=== PATIENT | female | born 1935 | race Caucasian/White ===

== ENCOUNTER 2017-07-08 03:38 | Inpatient (IN) | payer MEDICARE ==
[~2017-07-08] VITALS: Ht 157.5 cm; Wt 64.9 kg
[~2017-07-08 03:38] MED LIST changes: -CYA1000 PO; -FERR-53 PO; -LEVO-85 PO; -OMEP-125 PO
[2017-07-08] MEDS ORDERED: fentaNYL CITR 100 MCG/2 ML AMP IVP ONE (03:45)
[2017-07-08] MEDS ORDERED: ONDANSETRON 4 MG/2 ML VIAL IVP ONE (03:45)
--- NOTE | 2017-07-08 03:45 | ER Report ---
History and Physical Time Seen By MD: 03:44 HPI/ROS CHIEF COMPLAINT: Fall, left hip swelling HISTORY OF PRESENT ILLNESS: 81-year-old female who states she tripped over her dog at 11 AM yesterday. She fell backwards onto her left buttocks. Tonight. She's not feeling well. She's complaining of significant pain in her left hip. She's been able to ambulate. She notes no chest pain, no shortness of breath , no fever, no productive cough. EMS reports a large hematoma of the left buttocks region. REVIEW OF SYSTEMS: Respiratory: No cough, no dyspnea. Cardiovascular: No chest pain, no palpitations. Gastrointestinal: No vomiting, no abdominal pain. Musculoskeletal: No back pain. Allergies: Coded Allergies: No Known Drug Allergies (Unverified , 07/08/17) Home Meds Active Scripts Amlodipine Besylate (AMLODIPINE BESYLATE) 10 Mg Tablet, 1 TAB PO QDAY, #90 TAB 1 Refill Prov:HEENA KAPADIA APRN TEST AND TURN UP TECHNICIAN-C 02/10/16 Lisinopril (LISINOPRIL) 20 Mg Tablet, 20 MG PO QDAY, #30 TAB Prov:EMANUEL AMOS MD 12/25/15 Reported Medications Omeprazole (OMEPRAZOLE) 20 Mg Capsule., PO QDAY, CAP 07/08/17 Cholecalciferol (Vitamin D3) (VITAMIN D3) 1,000 Unit Tablet, 1 TAB PO DAILY 03/04/14 Past Medical/Surgical History Past Medical History Cardiovascular: Reports hx of: hypertension other CV history (diastolic heart failure) Respiratory: Reports hx of: pneumonia (2013) Gastrointestinal: Reports hx of: GERD Genitourinary: Reports hx of: urinary tract infection (hospitalized 2015) Musculoskeletal: Reports hx of: osteoarthritis Endocrine: Reports hx of: other endocrine history (hyponatremia related to hydrochlorothiazide 2015) Reviewed Nurses Notes: Yes Old Medical Records Reviewed: Yes Hx Smoking: No Smoking Status: Never Smoker Exposure to Second Hand Smoke?: Yes ( used to smoke ) Hx Substance Use Disorder: No Hx Alcohol Use: Yes (OCCAS WINE) Constitutional Vital Sign - Last 24 Hours 07/08/17 07/08/17 07/08/17 07/08/17 03:45 03:46 03:47 03:49 Temp 97.9 Pulse 95 94 Resp 16 B/P (MAP) 145/110 (122) 156/69 (98) 156/69 Pulse Ox 91 91 O2 Delivery Room Air 07/08/17 07/08/17 07/08/17 07/08/17 04:00 04:02 04:30 04:45 Pulse 87 80 B/P (MAP) 114/86 (95) 108/56 (73) Pulse Ox 80 87 97 O2 Flow Rate 1.0 07/08/17 07/08/17 07/08/17 07/08/17 05:00 05:15 05:29 05:30 Pulse 82 85 81 82 Resp 14 B/P (MAP) 130/54 (79) 145/59 (87) Pulse Ox 94 95 93 O2 Delivery Nasal Cannula O2 Flow Rate 1 Physical Exam Vital signs stable, afebrile, pulse ox normal General Appearance: The patient is alert, has no immediate need for airway protection and no current signs of toxicity. Mild distress, alert and oriented 3, palpation of the head and neck reveal no tenderness or trauma HEENT: Pupils equal and round no injection. Oropharynx without redness or exudate, mucous. Membranes are moist Respiratory: Chest is non tender, lungs are clear to auscultation. No chest wall tenderness Cardiac: regular rate and rhythm Gastrointestinal: Abdomen is soft and non tender, no masses, bowel sounds normal. Musculoskeletal: Neck: Neck is supple and non tender. Extremities have full range of motion and are non tender. Examination of the left hip reveals a huge hematoma involving the entire left buttocks., Hip range of motion is normal. He has intact. Ankles unremarkable. The left lower cavity is neurovascularly intact. There is no pain on compression of the pelvis Skin: No rashes or lesions. DIFFERENTIAL DIAGNOSIS: After history and physical exam differential diagnosis was considered for [ ] Medical Decision Making Data Points Result Diagram: 07/09/1752507/09/17525 Laboratory Hematology Test 07/08/17 03:40 Prothrombin Time 13.8 seconds (12.0-14.4) Prothromb Time International Ratio 1.05 Activated Partial Thromboplast Time 28 seconds (23-35) Total Bilirubin 0.6 mg/dl (0.2-1.3) Aspartate Amino Transf (AST/SGOT) 27 U/L (0-35) Alanine Aminotransferase (ALT/SGPT) 29 U/L (0-56) Alkaline Phosphatase 74 U/L (0-126) Troponin I 0.015 ng/ml Total Protein 6.8 gm/dl (6.3-8.2) Albumin 3.6 g/dl (3.5-5.0) Chemistry Test 07/08/17 03:40 Prothrombin Time 13.8 seconds (12.0-14.4) Prothromb Time International Ratio 1.05 Activated Partial Thromboplast Time 28 seconds (23-35) Total Bilirubin 0.6 mg/dl (0.2-1.3) Aspartate Amino Transf (AST/SGOT) 27 U/L (0-35) Alanine Aminotransferase (ALT/SGPT) 29 U/L (0-56) Alkaline Phosphatase 74 U/L (0-126) Troponin I 0.015 ng/ml Total Protein 6.8 gm/dl (6.3-8.2) Albumin 3.6 g/dl (3.5-5.0) Coagulation Test 07/08/17 03:40 Prothrombin Time 13.8 seconds Prothromb Time International Ratio 1.05 Activated Partial Thromboplast Time 28 seconds EKG/Imaging EKG Interpretation 12 lead EK Rhythm: normal sinus rhythm 82 bpm Dinosaur: normal QRS: Left bundle branch block pattern ST segments: normal, comparison to previous EKG 12/23/15. There is some morphologic change but likely still left bundle branch block Imaging X-ray: Left hip was obtained. I viewed the images myself on the PACS system. My interpretation of the images is: No fracture no dislocation or malalignment. The radiologist interpretation had no clinically significant variation from this interpretation. ED Course/Re-evaluation Clinical Indication for ER IV: IV Access ED Course Patient was admitted to an examination room. H&P was done. The pharyngeal diagnoses was considered. On clinical examination. Patient has a large hematoma involving her entire left buttocks. Her hip moves with good range of motion. There is no pain on compression. Diagnostic x-rays of left hip are unremarkable. Other diagnostic studies show hyponatremia, hypokalemia. EKG shows left bundle branch block without significant change. Comparison to old EKGs. Her troponin is not elevated. Her H&H is drops significantly. Likely due to the large hematoma in her left hip. Patient be need to be admitted for pain management, repletion of her sodium and potassium. Decision to Disposition Date: Jul 08, 2017 Decision to Disposition Time: 04:27 Depart Departure Latest Vital Signs Vital Signs Date Time Temp Pulse Resp B/P (MAP) Pulse Ox O2 Delivery O2 Flow Rate FiO2 07/08/17 05:30 82 07/08/17 05:29 14 145/59 (87) 93 Nasal Cannula 1 07/08/17 03:49 97.9 Impression: Primary Impression: Fall in elderly patient Additional Impressions: Hyponatremia Hypokalemia Hypertension, benign Hematoma Anemia Condition: Improved Disposition: Admitted from ER Referrals: HEENA KAPADIA APRN TEST AND TURN UP TECHNICIAN-C (PCP) Problem Qualifiers Additional Impressions: Anemia Anemia type: unspecified type Qualified Codes: D64.9 - Anemia, unspecified MÓNICA GARCIA DO Jul 08, 2017 03:45
[2017-07-08] MEDS ORDERED: OMEP-125 PO (03:48)
[2017-07-08 04:00] LABS: INR 1.05
[2017-07-08 04:04] LABS: PLATELET COUNT, AUTOMATED 173 K/uL (150-450)
--- NOTE | 2017-07-08 04:24 | RADIOLOGY IMAGING REPORT ---
FACILITY: [facility] - [place] PATIENT NAME: Minna Metz : 1935 MR: [id number] V: [id number] EXAM DATE: ORDERING PHYSICIAN: MÓNICA GARCIA TECHNOLOGIST: Location: [facility] Patient: Minna Metz : 1935 Visit/Account:[id number] Date of Sevice: 07/08/2017 HIP: Indication: Injury. Technique: Two views were obtained. Comparison: None. Findings: There is no evidence of fracture, dislocation, or other acute deformity. No joint space shahana rowing, erosion, or osteophyte formation is noted. There is uniform mineralization of the skeletal st ructures. There is no evidence of soft tissue deformity or calcification. There is evidence of degenerative disc disease in the lower lumbar spine. IMPRESSION: Negative left hip. Report Dictated By: Wilmar Carrero MD at 07/08/2017 4:19 AM Report E-Signed By: Wilmar Carrero MD at 07/08/2017 4:21 AM WSN:[id number]
--- NOTE | 2017-07-08 04:34 | EKG ---
FACILITY: [facility] - [place] PATIENT NAME: RAJ FREED : [id number] MR: [id number] V: [id number] EXAM DATE: ORDERING PHYSICIAN: MÓNICA GARCIA TECHNOLOGIST: Brice Pina Reason : Blood Pressure : / mmHG Vent. Rate : 082 BPM Atrial Rate : 094 BPM P-R Int : 000 ms QRS Dur : 136 ms QT Int : 438 ms P-R-T Axes : 000 006 134 degrees QTc Int : 511 ms Normal sinus rhythm with occasional premature ventricular complexes Much baseline artifact Left bundle branch block Abnormal ECG When compared with ECG of 30-DEC-2015 23:35, Relatively unchanged but baseline artifact makes it difficult to compare Confirmed by PHILLIP SARMIENTO ([id number]) on 07/08/2017 4:56:32 AM Referred By: Confirmed By:PHILLIP SARMIENTO
[2017-07-08] MEDS ORDERED: LIDOCAINE 2% VISC SLN 15ML UDC PO ONE (05:20)
[2017-07-08] MEDS ORDERED: MAG HYD/AL HYD/SIMETH 30ML UDC PO ONE (05:20)
[2017-07-08] MEDS ORDERED: POTASSIUM CHL 10% SF LIQ 20MEQ PO ONE (05:30)
[2017-07-08] MEDS ORDERED: INFLUENZA VIRUS VAC 0.5 ML SYR IM ONLY ONE (05:30)
[2017-07-08 05:55] VITALS: BP 133/41
--- NOTE | 2017-07-08 06:18 | History & Physical ---
History of Present Illness History of Present Illness 81yo female with HTN who came to the ER because of pain in her left buttock and heart burn. For the last month, she has not felt herself. She has had a lot of heart burn and not currently taking any medications for it. Spicy foods make it worse. She has felt more chilled for the last 3 weeks. For the last week, she has has a lot of nausea and occasional vomiting. She can only drink water and eat ice chips. 2 days ago, she was getting out of her car and a puppy jumped on her. She ended up falling on her left buttock onto the ground. She was able to get up and go into her apartment, but has had a lot pain with ambulation since then. She has had trouble swallowing bulky foods for many months related to not having dentures, but now limited by nausea. She denies any hematochezia, coffee ground emesis, or hematemesis. She might have some black stools occasionally. No reported SOB, diarrhea or constipation. History Problems: (1) Unspecified diastolic heart failure Status: Acute (2) GERD (gastroesophageal reflux disease) Status: Chronic (3) Hypertension, benign Status: Chronic (4) Hyponatremia Status: Acute Home Meds Active Scripts Amlodipine Besylate (AMLODIPINE BESYLATE) 10 Mg Tablet, 1 TAB PO QDAY, #90 TAB 1 Refill Prov:HEENA KAPADIA APRN DISTILLATION OPERATOR HELPER-C 02/10/16 Lisinopril (LISINOPRIL) 20 Mg Tablet, 20 MG PO QDAY, #30 TAB Prov:EMANUEL AMOS MD 12/25/15 Reported Medications Omeprazole (OMEPRAZOLE) 20 Mg Capsule., PO QDAY, CAP 07/08/17 Cholecalciferol (Vitamin D3) (VITAMIN D3) 1,000 Unit Tablet, 1 TAB PO DAILY 03/04/14 Allergies: Coded Allergies: No Known Drug Allergies (Unverified , 07/08/17) Patient History: FH: cancer FATHER (Grew up mostly in foster care - most family history is unknown), , Age:60 years and older MOTHER (Grew up mostly in foster care - most family history is unknown), Unknown FATHER (Grew up mostly in foster care - most family history is unknown), , Age:60 years and older BROTHER OR SISTER (grew up mostly in foster cared - not much history is known) Grandmother (Lived to be 115), , Age:115 Other Social/Family Hx Lives by herself. . Hx Smoking: No Smoking Status: Never Smoker Exposure to Second Hand Smoke?: Yes ( used to smoke ) Hx Alcohol Use: Yes (OCCAS WINE) Hx Substance Use Disorder: No Social Drug Use: Never Review of Systems All Systems Reviewed/Normal: Yes, Except as Noted Exam Vital Signs Vital Signs Date Time Temp Pulse Resp B/P (MAP) Pulse Ox O2 Delivery O2 Flow Rate FiO2 07/08/17 05:30 82 07/08/17 05:29 14 145/59 (87) 93 Nasal Cannula 1 07/08/17 03:49 97.9 General Appearance: Alert, Awake, No Acute Distress (except will get "heart burn" symptoms that make her cringe briefly) Neuro: No Gross deficits (orientated to place, date and events) Eyes: PERRLA ENT: Moist Mucous Membranes, Other (Tongue with a brownish area centrally and proximally) Cardiovascular: Regular Rate and Rhythm (Intermittent split S2) Respiratory: Clear to Auscultation GI: Abd Soft and Non-Tender Musculoskeletal: Other (About 15cm diameter raised hematoma over the left ischium with some ecchymosis) Medical Decision Making Data Points Result Diagram: 07/08/17 0340 07/08/17 0340 Item Value Date Time Troponin I 0.015 ng/ml 07/08/17 0340 Total Bilirubin 0.6 mg/dl 07/08/17 0340 Aspartate Amino Transf (AST/SGOT) 27 U/L 07/08/17 0340 Alanine Aminotransferase (ALT/SGPT) 29 U/L 07/08/17 0340 Alkaline Phosphatase 74 U/L 07/08/17 0340 Hemoglobin 13.5 g/dL 05/31/17 0920 Hemoglobin 10.4 g/dL L 07/08/17 0340 Mean Corpuscular Volume 77.3 fL L 05/31/17 0920 Mean Corpuscular Volume 75.1 fL L 07/08/17 0340 Platelet Count 257 K/uL 05/31/17 0920 Platelet Count 173 K/uL 07/08/17 0340 Prothromb Time International Ratio 1.05 07/08/17 0340 Sodium Level 142 mmol/L 05/31/17 0920 Chloride Level 103 mmol/L 05/31/17 0920 Carbon Dioxide Level 28 mmol/L 05/31/17 0920 Blood Urea Nitrogen 11 mg/dl 05/31/17 0920 Creatinine 0.80 mg/dl 05/31/17 0920 EKG / Imaging Imaging Hip Xray - Negative left hip. Assessment and Plan Problems: (1) Hyponatremia Status: Acute Assessment & Plan: This is new since May. The etiology is unclear. She previously had hyponatremia related to HCTZ in December of 2015. Urine sodium and urine osmolality pending. Repeat BMP this morning, at 1300 and tomorrow morning. (2) Hypokalemia Status: Acute Assessment & Plan: Likely, related to vomiting. Repeat BMP as above and checking a Mg. Will give oral replacement now and wait to give IV until low K confirmed on a repeat. (3) Nausea Status: Acute Assessment & Plan: Reported symptoms for a week. She is also having a lot of heart burn symptoms. Will check amylase/lipase. Will try a GI cocktail. ST to evaluate for difficulty swallowing bulky foods. Prealbumin pending. (4) Hematoma Status: Acute Assessment & Plan: Over the left buttock secondary to a fall 2 day prior to admission related to a puppy jumping on her. She is anemic. Will follow the size and might need to have surgery evaluate for drainage (currently about 15 cm in diameter). Not on any anticoagulation. Platelet count and INR are wnl. Repeat CBC at 1300 and in the morning. Chronically has microcytosis with an elevated RDW, so will check iron studies, B12 and Folate. Will ask OT/PT to see for ambulation concerns and ADL's. Will ask SW to see because she lives at home alone and might need more services. (5) GERD (gastroesophageal reflux disease) Status: Chronic Assessment & Plan: She is chronically on Omeprazole, but it is unclear if she is taking it. Protonix orally with prn GI cocktail. (6) Hypertension, benign Status: Chronic Assessment & Plan: Reportedly on lisinopril and amlodipine. Per her PCP notes , there is concern about compliance. Will continue enalapril. Will hold amlodipine because of the preserved EF HF concerns. Copies to: JUAN APYNE MD; HEENA KAPADIA APRN DISTILLATION OPERATOR HELPER-C Venous Thromboembolism Antithrombotics Is Pt On Any Antithrombotics?: No Exam Sepsis Risk: No Definite Risk PHILLIP SARMIENTO MD Jul 08, 2017 06:18
[2017-07-08] MEDS ORDERED: POTASSIUM CHL PWDR 20 MEQ PKT PO ONE (06:30)
[2017-07-08] MEDS: PANTOPRAZOLE SOD 40 MG TABEC PO SCH (06:36)
[2017-07-08] MEDS ORDERED: MAGNESIUM SUL* 2 GM/50 ML IVPB 50 ML IVPB ONE (07:30)
[2017-07-08 07:35] VITALS: BP 140/53
[2017-07-08] MEDS ORDERED: NS(*) 0.9% 1000 ML BAG 1,000 ML ONE (07:43)
[2017-07-08] MEDS: KCL (*) 20 MEQ/100 ML PREMIX 100 ML IV SCH ×2 (07:46→12:18)
[2017-07-08 07:53] VITALS: BP 134/57
[2017-07-08 08:21] VITALS: Ht 157.5 cm; Wt 64.9 kg
[2017-07-08] MEDS: LISINOPRIL 20 MG TAB PO SCH (08:54)
[2017-07-08] MEDS: GI COCKTAIL 60 ML BTL PO PRN ×2 (10:33→17:04)
[2017-07-08 13:11] LABS: PLATELET COUNT, AUTOMATED 170 K/uL (150-450)
--- NOTE | 2017-07-08 15:02 | Medical Nutrition Therapy ---
Nutrition Anthropometrics Height (Inches): 62.00 Height (Calculated Centimeters: 157.464560 Weight (Pounds): 143 Weight (Calculated Kilograms): 64.977 BMI Calculated: 26.15 Davis Nutrition Score: Probably Inadequate Davis Nutrition Risk Score: 16 Dietary Referral Nutrition Risk Factors: Diff. Swallowing Nutrition Risk Comment: Pt states diffeculty swallowing chewed food. Loss of teeth recently Physical Findings Physical Appearance: Overweight BMI 25-29 Skin Appearance Skin Appearance: Edema Edema Location Modifier: Edema Location: Type of Edema: Degree of Edema: Gastrointestinal Symptoms GI Symtoms: Tube Present: Bowel Sounds: Recent Bowel Pattern: Stool Characteristics: Nutritional Diagnosis Nutritional Risk Acuity 2: V/D > 3 Days, Pr Appetite > 3d Nutritional Risk Acuity 3: GERD Past Medical History: unspecified diastolic HF, GERD, HTN, hyponatremia Nutritional Acuity: 2-Moderate Nutrition Diagnosis: Inadequate Food Intake Nutrition Etiology: Physiological Causes Nutrition Problem/Etiology/Sym: Inadequate calorie intake r/t N, V, and chewing difficulty AEB reports of poor intake over the last week. Diet Type: Diet as Tolerated AGGIE/REG Nutrition Intervention: Cont diet as ordered, Encourage intake Diet Comment To RSA: PLEASE OFFER SOFT, EASY TO CHEW FOODS PLEASE OFFER NUTR SUPPLEMENT Nutrition Monitoring & Eval RD Patient Assessment Time: [address] Assessment Type: RD Assessment Patient Nutrition Acuity: 2-Moderate Follow Up Date: Jul 10, 2017 Nutritional Comment: 07/08 Pt admitted for hyponatremia and hypokalemia. Pt reports not feeling well for the last month and had a fall 2 days ago. Within the last week pt has had nausea and occasional vomitting. She reports only drinking water and eating ice chips. Notable labs include low H/H, Na 127, K+ 3, and magnesium 1.6. Pt on AGGIE with no intakes available. Per nursing, pt states diffeculty swallowing chewed food due to loss of teeth recently. May benefit from ST eval. Will follow up with pt as well. Will monitor intake, N/V, labs, etc. 07/08 Spoke to pt in room about chewing/swallowing difficulty. Pt stated her dentures are at home so she is not able to chew tough foods here. Pt reports poor appetite due to N/V and overall not feeling well over the past week. Will offer soft foods or nutr supplement. Pt had 25% of reg portion at lunch. Will continue to monitor intakes, labs, etc. NUGENT,LOKESH Jul 08, 2017 13:59
[2017-07-08 15:35] VITALS: BP 115/55
[2017-07-08 20:45] VITALS: BP 121/51
[2017-07-08] MEDS: NS(*) 0.9% 1000 ML BAG 1,000 ML IV PRN (22:04)
[2017-07-09 00:22] VITALS: BP 123/65
[2017-07-09 05:42] LABS: PLATELET COUNT, AUTOMATED 126 K/uL (150-450)
[2017-07-09] MEDS: PANTOPRAZOLE SOD 40 MG TABEC PO SCH (06:00)
[2017-07-09] MEDS: NS(*) 0.9% 1000 ML BAG 1,000 ML IV PRN (07:14)
[2017-07-09 07:59] VITALS: BP 139/48
[2017-07-09] MEDS: FERROUS SULFATE 325 MG TAB PO SCH ×2 (09:15→16:56)
[2017-07-09] MEDS: LISINOPRIL 20 MG TAB PO SCH (09:15)
[2017-07-09] MEDS ORDERED: LEVOFLOXACIN 500 MG TAB PO SCH (10:00)
--- NOTE | 2017-07-09 11:09 | RADIOLOGY IMAGING REPORT ---
FACILITY: [facility] - [place] PATIENT NAME: Minna Metz : 1935 MR: [id number] V: [id number] EXAM DATE: ORDERING PHYSICIAN: LOU DC TECHNOLOGIST: Location: [facility] - [place] Patient: Minna Metz : 1935 Visit/Account:[id number] Date of Sevice: 07/09/2017 SOFT TISSUE NON-SPECIFIC HISTORY: left hip hematoma Additional history: Trauma COMPARISON: Radiographs left hip 07/08/2017 which were negative for fracture FINDINGS: Corrected ultrasound was performed over the left buttocks area in the area of concern. There is a com plex cystic mass in the soft tissues of the left buttocks which measures 8.8 x 6.7 x 3.4 cm. With col or Doppler interrogation there is no evidence of active bleeding in this mass is avascular. IMPRESSION: Large hypoechoic complex mass in the left buttock soft tissues. Given history this represents a large hematoma. However, recommend clinical follow-up to ensure resolution. If persistent contrasted MRI m ay be considered. No evidence of active bleeding. Report Dictated By: Reg Grubbs MD at 07/09/2017 11:02 AM Report E-Signed By: Reg Grubbs MD at 07/09/2017 11:05 AM WSN:[id number]
--- NOTE | 2017-07-09 11:48 | Hospitalist Progress Note ---
Subjective Progress Notes Subjective Mrs. Metz is an 81yo female with HTN who came to the ER because of pain in her left buttock and heart burn. For the last month, she has not felt herself. She has had a lot of heart burn and not currently taking any medications for it. Spicy foods make it worse. She has felt more chilled for the last 3 weeks. For the last week, she has has a lot of nausea and occasional vomiting. She can only drink water and eat ice chips. 2 days ago, she was getting out of her car and a puppy jumped on her. She ended up falling on her left buttock onto the ground. She was able to get up and go into her apartment, but has had a lot pain with ambulation since then. She has had trouble swallowing bulky foods for many months related to not having dentures, but now limited by nausea. She denies any hematochezia, coffee ground emesis, or hematemesis. She might have some black stools occasionally. No reported SOB, diarrhea or constipation. 07/09: She is feeling somewhat tired and otherwise feeling better than yesterday. Her hematoma has increased and her HCT has dropped from 30 to 26.9. Her U/A is also came back positive for UTI. Her elctrolytes are back to normal range except Na is 130. Her MCV is also low 75. Patient Complains of: Neurological: Weakness, No: Syncope, Confusion, Dizziness Cardiovascular: No: Chest Pain, Palpitations Respiratory: No: Cough, Congestion, Shortness of Breath, Wheezing Gastrointestinal: Bowel Movement, Other (She does not have her dentures and she has some difficuly swallowing), No Nausea, No Vomiting Genitourinary: No Dysuria, No Hematuria Musculoskeletal: No: Pain, Sprain, Strain Physical Exam Vital Signs Date Time Temp Pulse Resp B/P (MAP) Pulse Ox O2 Delivery O2 Flow Rate FiO2 07/09/17 07:59 99.7 87 16 139/48 (78) 93 Nasal Cannula 1.0 Intake and Output 07/10/17 07:00 Intake Total 240 ml Balance 240 ml Intake Oral 240 ml General Appearance: Alert, Awake, No Acute Distress, Afebrile Neuro: No Gross deficits Eyes: PERRLA ENT: Normal, Other (no dentures) Neck: No Masses Cardiovascular: Normal Rhythm & Peripheral Pulses Respiratory: No Respiratory Distress GI: Soft and Non-Tender Extremities: Soft and Non Tender Psych: Alert & Oriented X3, Appropriate Mood & Affect Result Diagram: 07/09/1752507/09/17525 Assessment and Plan Problems: (1) Urinary tract infection Status: Acute Assessment & Plan: Her U/A was positive for UTI and I will start her on Levaquin 500mg po qd for 3 days (2) Hyponatremia Status: Acute Assessment & Plan: This is new since May. The etiology is unclear. She previously had hyponatremia related to HCTZ in December of 2015. Urine sodium and urine osmolality pending. Repeat BMP this morning, at 1300 and tomorrow morning. 07/09: Her Na level has improved to 130 with the fluids. She has had N/V and her HCO3 was 36. I will check her BMP in ca (3) Hematoma Status: Acute Assessment & Plan: Over the left buttock secondary to a fall 2 day prior to admission related to a puppy jumping on her. She is anemic. Will follow the size and might need to have surgery evaluate for drainage (currently about 15 cm in diameter). Not on any anticoagulation. Platelet count and INR are wnl. Repeat CBC at 1300 and in the morning. Chronically has microcytosis with an elevated RDW, so will check iron studies, B12 and Folate. Will ask OT/PT to see for ambulation concerns and ADL's. Will ask SW to see because she lives at home alone and might need more services. 07/09: Her hematoma has increased in size and HCT has dropped to 26.9. I will get US of her L-buttock hematoma for further evaluation. I will check her stool guaic and I will start her on FeSO4 325mg po bid. (4) Hypokalemia Status: Resolved Assessment & Plan: Likely, related to vomiting. Repeat BMP as above and checking a Mg. Will give oral replacement now and wait to give IV until low K confirmed on a repeat. (5) Nausea Status: Resolved Assessment & Plan: Reported symptoms for a week. She is also having a lot of heart burn symptoms. Will check amylase/lipase. Will try a GI cocktail. ST to evaluate for difficulty swallowing bulky foods. Prealbumin pending. (6) GERD (gastroesophageal reflux disease) Status: Chronic Assessment & Plan: She is chronically on Omeprazole, but it is unclear if she is taking it. Protonix orally with prn GI cocktail. (7) Hypertension, benign Status: Chronic Assessment & Plan: Reportedly on lisinopril and amlodipine. Per her PCP notes , there is concern about compliance. Will continue enalapril. Will hold amlodipine because of the preserved EF HF concerns. Central Venous Access Medical Necessity for Access: IV Access Time Spent on Plan of Care: < 30 min Copies to: HEENA KAPADIA APRN ESCORT CAR DRIVER-C Exam Sepsis Risk: No Definite Risk LOU DC MD Jul 09, 2017 11:48
[2017-07-09 12:41] VITALS: BP 126/51
[2017-07-09] MEDS: ACETAMINOPHEN 500 MG TAB PO PRN (14:33)
[2017-07-09 14:59] VITALS: BP 116/47
[2017-07-09 19:35] VITALS: BP 129/44
[2017-07-10] VITALS (9 sets, daily range): BP systolic 122–155; BP diastolic 42–55
[2017-07-10] MEDS: ACETAMINOPHEN 500 MG TAB PO PRN ×3 (03:03→21:53)
[2017-07-10] MEDS: PANTOPRAZOLE SOD 40 MG TABEC PO SCH (05:30)
[2017-07-10 05:59] LABS: PLATELET COUNT, AUTOMATED 104 K/uL (150-450)
[2017-07-10] MEDS ORDERED: NS(*) 0.9% 500 ML BAG 500 ML ONE (08:34)
[2017-07-10] MEDS: LISINOPRIL 20 MG TAB PO SCH (08:44)
[2017-07-10] MEDS: FERROUS SULFATE 325 MG TAB PO SCH ×2 (08:44→16:48)
--- NOTE | 2017-07-10 09:21 | Hospitalist Progress Note ---
Subjective Progress Notes Subjective This patient was admitted for a hematoma suffered after a fall. She had no acute events overnight. Patient Complains of: Cardiovascular: No: Chest Pain Respiratory: No: Shortness of Breath Physical Exam Vital Signs Date Time Temp Pulse Resp B/P (MAP) Pulse Ox O2 Delivery O2 Flow Rate FiO2 07/10/17 08:59 98.5 80 16 122/47 07/10/17 07:48 91 Nasal Cannula 1.0 Intake and Output 07/11/17 07:00 # Voids 1 Cardiovascular: Regular Rate and Rhythm Respiratory: Clear to Auscultation Integumentary: Other (Ecchymosis on left lateral thigh and buttocks.) Result Diagram: 07/10/17 0520 07/10/17 0520 Item Value Date Time Urine Culture - Final Complete 07/08/17 1518 Clean Catch Midstream Ur Klebsiella Pneumoniae Assessment and Plan Problems: (1) Urinary tract infection Status: Acute Assessment & Plan: Her urinalysis showed large leukocytes, but WBC was normal and she was afebrile. She was started on a 3 day course of levofloxacin. Her culture is positive for Klebsiella. (2) Hyponatremia Status: Acute Assessment & Plan: This is new since May. The etiology is unclear. She previously had hyponatremia related to HCTZ in December of 2015. Urine sodium and urine osmolality pending. Repeat BMP this morning, at 1300 and tomorrow morning. 07/09: Her Na level has improved to 130 with the fluids. She has had N/V and her HCO3 was 36. I will check her BMP in ut Her sodium level has improved since admission. (3) Hematoma Status: Acute Assessment & Plan: Over the left buttock secondary to a fall 2 day prior to admission related to a puppy jumping on her. She is anemic. Will follow the size and might need to have surgery evaluate for drainage (currently about 15 cm in diameter). Not on any anticoagulation. Platelet count and INR are wnl. Repeat CBC at 1300 and in the morning. Chronically has microcytosis with an elevated RDW, so will check iron studies, B12 and Folate. Will ask OT/PT to see for ambulation concerns and ADL's. Will ask SW to see because she lives at home alone and might need more services. 07/09: Her hematoma has increased in size and HCT has dropped to 26.9. I will get US of her L-buttock hematoma for further evaluation. I will check her stool guaic and I will start her on FeSO4 325mg po bid. Her ultrasound showed a stable hematoma. (4) Hypokalemia Status: Resolved Assessment & Plan: Resolved with supplementation. (5) GERD (gastroesophageal reflux disease) Status: Chronic Assessment & Plan: She is chronically on Omeprazole, but it is unclear if she is taking it. Protonix orally with prn GI cocktail. (6) Hypertension, benign Status: Chronic Assessment & Plan: Reportedly on lisinopril and amlodipine. Per her PCP notes , there is concern about compliance. Will continue enalapril. Will hold amlodipine because of the preserved EF HF concerns. Her blood pressure has been stable with just the enalapril. (7) Anemia Assessment & Plan: Her Hgb has been steadily decreasing since admission. This is likely secondary to her hematoma, but her stool was also positive for occult blood. She is scheduled to receive 2 units of red cells today. We may need to consider surgical consult for colonoscopy. Central Venous Access Medical Necessity for Access: IV Access Exam Sepsis Risk: No Definite Risk DIANA DHALIWAL DO Jul 10, 2017 09:21
[2017-07-10] MEDS: LEVOFLOXACIN 500 MG TAB PO SCH (10:02)
--- NOTE | 2017-07-10 10:25 | Antimicrobial Stewardship ---
Antimicrobial Stewardship MD Service: Hospitalist Indications: UTI Antimicrobial Used Empiric treatment with Levaquin 500 mg PO x 1 day then 250 mg PO daily. This is appropriate empiric treatment for UTI. Duration of Therapy: 3 Days Start Date: Jul 09, 2017 Height (Calculated Centimeters: [phone] Weight (Calculated Kilograms): 64.977 Creatinine Cl 42.88 ml/min. Current dosing appropriate. Culture Results: HANSA Lyman Jul 10, 2017 10:25
--- NOTE | 2017-07-10 10:58 | Medical Nutrition Therapy ---
Nutrition Anthropometrics Height (Inches): 62.00 Height (Calculated Centimeters: 157.987906 Weight (Pounds): 143 Weight (Calculated Kilograms): 64.977 BMI Calculated: 26.15 Davis Nutrition Score: Adequate Davis Nutrition Risk Score: 18 Dietary Referral Nutrition Risk Factors: Diff. Swallowing Nutrition Risk Comment: Pt states diffeculty swallowing chewed food. Loss of teeth recently Nutritional Diagnosis Nutritional Risk Acuity 2: Swallowing Problem Nutritional Risk Acuity 3: GERD Past Medical History: unspecified diastolic HF, GERD, HTN, hyponatremia Nutritional Acuity: 2-Moderate Nutrition Diagnosis: Inadequate Food Intake Nutrition Etiology: Physiological Causes Nutrition Problem/Etiology/Sym: Inadequate calorie intake r/t N, V, and chewing difficulty AEB reports of poor intake over the last week. Energy Requirement: 1400 (M-SJ) Protein Requirement: 65 (1gm/kg) Fluid Requirement: 1625 (25 gm/kg) Diet Type: Diet as Tolerated AGGIE/REG Nutrition Intervention: Cont diet as ordered, Encourage intake, Between meal supplement Additional Diet Restrictions: PLEASE OFFER SOFT, EASY TO CHEW FOODS Diet Comment To RSA: PLEASE OFFER NUTR SUPPLEMENT IF INTAKE <50% Nutrition Monitoring & Eval Nutrition Goals: Eat 75-100% Meal Nutrition Follow-Up: Good Intake, Fair Intake RD Patient Assessment Time: [address] Assessment Type: RD Re-Assessment Patient Nutrition Acuity: 2-Moderate Follow Up Date: Jul 14, 2017 Nutritional Comment: 07/08 Pt admitted for hyponatremia and hypokalemia. Pt reports not feeling well for the last month and had a fall 2 days ago. Within the last week pt has had nausea and occasional vomitting. She reports only drinking water and eating ice chips. Notable labs include low H/H, Na 127, K+ 3, and magnesium 1.6. Pt on AGGIE with no intakes available. Per nursing, pt states diffeculty swallowing chewed food due to loss of teeth recently. May benefit from ST eval. Will follow up with pt as well. Will monitor intake, N/V, labs, etc. 07/08 Spoke to pt in room about chewing/swallowing difficulty. Pt stated her dentures are at home so she is not able to chew tough foods here. Pt reports poor appetite due to N/V and overall not feeling well over the past week. Will offer soft foods or nutr supplement. Pt had 25% of reg portion at lunch. Will continue to monitor intakes, labs, etc. 07/09 Pt reported only chewing problems to paid intern but reported "afaid to swallow to nursing" swallow eval pending. After diet changed to mechanical soft pt has been eating 75-100% of meals. H/H cont low. Alb 3.6, prealbuin 20, both WNR. Cont to offer nutr supplments if intake < 50%. RUBEN OZUNA Jul 10, 2017 10:58
[2017-07-10] MEDS: GI COCKTAIL 60 ML BTL PO PRN (15:59)
[2017-07-11 03:59] VITALS: BP 167/68
[2017-07-11 05:53] LABS: PLATELET COUNT, AUTOMATED 142 K/uL (150-450)
[2017-07-11 06:57] VITALS: BP 156/63
[2017-07-11] MEDS: PANTOPRAZOLE SOD 40 MG TABEC PO SCH (07:17)
[2017-07-11] MEDS: LISINOPRIL 20 MG TAB PO SCH (09:06)
[2017-07-11] MEDS: FERROUS SULFATE 325 MG TAB PO SCH (09:06)
[2017-07-11] MEDS ORDERED: CYANOCOBALAMIN 1000 MCG TAB PO SCH (09:25)
[2017-07-11] MEDS ORDERED: amLODIPine BESYL(*) 5 MG TAB PO SCH (09:25)
[2017-07-11] MEDS: LEVOFLOXACIN 500 MG TAB PO SCH (10:01)
[2017-07-11 11:08] VITALS: BP 167/69
[2017-07-11] MEDS ORDERED: LEVO-85 PO (11:58)
[2017-07-11] MEDS ORDERED: FERR-53 PO (12:00)
[2017-07-11] MEDS ORDERED: CYA1000 PO (12:00)
[2017-07-11] MEDS ORDERED: INFLUENZA VIRUS VAC 0.5 ML SYR IM ONLY ONE (13:16)
--- NOTE | 2017-07-11 13:23 | Hospitalist Depart ---
Discharge Summary Reason for Hosp/Final Diag: (1) Urinary tract infection Status: Acute Hospital Course & Plan: Mrs. Metz is an 81yo female with HTN who came to the ER because of pain in her left buttock and heart burn. For the last month, she has not felt herself. She has had a lot of heart burn and not currently taking any medications for it. Spicy foods make it worse. She has felt more chilled for the last 3 weeks. For the last week, she has has a lot of nausea and occasional vomiting. She can only drink water and eat ice chips. 2 days ago, she was getting out of her car and a puppy jumped on her. She ended up falling on her left buttock onto the ground. She was able to get up and go into her apartment, but has had a lot pain with ambulation since then. She has had trouble swallowing bulky foods for many months related to not having dentures, but now limited by nausea. She denies any hematochezia, coffee ground emesis, or hematemesis. She might have some black stools occasionally. No reported SOB , diarrhea or constipation. 07/09: She is feeling somewhat tired and otherwise feeling better than yesterday. Her hematoma has increased and her HCT has dropped from 30 to 26.9. Her U/A is also came back positive for UTI. Her electrolytes are back to normal range except Na is 130. Her MCV is also low 75. 07/11: She is doing better and without complaint today. Her UCX is positive for Klebsiella pneumonia and it is sensitive to Levaquin. She will take total of 3 days course. I started her on FeSO4 and Vit.B12 for her anemia. She also has received 2 units PRBC's and her Hb is 10.9 increased from7.8. She is being d/c' d today and she will follow her PCP for her hematoma. She also has guaic positive and she will get colonoscopy as an out patient by her PCP. (2) Hyponatremia Status: Resolved Hospital Course & Plan: This is new since May. The etiology is unclear. She previously had hyponatremia related to HCTZ in December of 2015. Urine sodium and urine osmolality pending. Repeat BMP this morning, at 1300 and tomorrow morning. 07/09: Her Na level has improved to 130 with the fluids. She has had N/V and her HCO3 was 36. I will check her BMP in ma 07/11: Her Na has improved to 135 (3) Hematoma Status: Acute Hospital Course & Plan: Over the left buttock secondary to a fall 2 day prior to admission related to a puppy jumping on her. She is anemic. Will follow the size and might need to have surgery evaluate for drainage (currently about 15 cm in diameter). Not on any anticoagulation. Platelet count and INR are wnl. Repeat CBC at 1300 and in the morning. Chronically has microcytosis with an elevated RDW, so will check iron studies, B12 and Folate. Will ask OT/PT to see for ambulation concerns and ADL's. Will ask SW to see because she lives at home alone and might need more services. 07/09: Her hematoma has increased in size and HCT has dropped to 26.9. I will get US of her L-buttock hematoma for further evaluation. I will check her stool guaic and I will start her on FeSO4 325mg po bid. 07/10 Her ultrasound showed a stable hematoma. 07/11: She will follow up with her PCP for her hematoma. I have given the instructions. (4) Hypokalemia Status: Resolved Hospital Course & Plan: Resolved with supplementation. (5) GERD (gastroesophageal reflux disease) Status: Chronic Hospital Course & Plan: She is chronically on Omeprazole, but it is unclear if she is taking it. Protonix orally with prn GI cocktail. (6) Hypertension, benign Status: Chronic Hospital Course & Plan: Reportedly on lisinopril and amlodipine. Per her PCP notes, there is concern about compliance. Will continue enalapril. Will hold amlodipine because of the preserved EF HF concerns. Her blood pressure has been stable with just the enalapril. (7) Anemia Status: Acute Hospital Course & Plan: Her Hgb has been steadily decreasing since admission. This is likely secondary to her hematoma, but her stool was also positive for occult blood. She is scheduled to receive 2 units of red cells today. We may need to consider surgical consult for colonoscopy. 07/11: She received 2 units of PRBC's and her Hb is 10.9. Her guaic was also positive and she will arrange colonoscopy by her PCP for further evaluation. I also gave her FeSO4 and Vit.B12 Departure Weight (Pounds): 143 Weight (Ounces): 4.0 Result Diagram: 07/11/1728 07/11/17527 Condition: Improved Discharge: Home, Self Care PT/OT Follow Up For: PT For Strengthening, OT Evaluation and Treat Home Health TEST LEAD APPLICATION TESTING Follow Up For: ADL Assistance Time Spent: < 30 min Discharge Instructions Home Meds Active Scripts Cyanocobalamin (Vitamin B-12) (VITAMIN B-12) 1,000 Mcg Tablet, 1000 MCG PO QDAY for 30 Days, #30 TAB Prov:LOU DC MD 07/11/17 Ferrous Sulfate (FERROUS SULFATE) 325 Mg Tablet, 325 MG PO BIDBS for 30 Days, # 60 TAB Prov:LOU DC MD 07/11/17 Levofloxacin 500 Mg Tab (LEVAQUIN 500 MG TAB) 500 Mg Tablet, 250 MG PO QDAY@10 for 1 Day, #1 TAB Prov:LOU DC MD 07/11/17 Amlodipine Besylate (AMLODIPINE BESYLATE) 10 Mg Tablet, 1 TAB PO QDAY, #90 TAB 1 Refill Prov:HEENA KAPADIA APRN-C 02/10/16 Lisinopril (LISINOPRIL) 20 Mg Tablet, 20 MG PO QDAY, #30 TAB Prov:EMANUEL AMOS MD 12/25/15 Reported Medications Omeprazole (OMEPRAZOLE) 20 Mg Capsule.dr, 20 MG PO QDAY, CAP 07/08/17 Cholecalciferol (Vitamin D3) (VITAMIN D3) 1,000 Unit Tablet, 1 TAB PO DAILY 03/04/14 Diet: Regular Activity: As Tolerated Special Instructions: diet is mecahnical soft Copies to: HEENA KAPADIA APRN-C Venous Thromboembolism Antithrombotics Is Pt On Any Antithrombotics?: No LOU DC MD Jul 11, 2017 13:23
[2017-07-12] MEDS ORDERED: LISI20TA29 PO (10:07)
[2017-07-12] MEDS ORDERED: AMLO-96 PO (10:07)
[2017-07-12] MEDS ORDERED: OMEP-125 PO (10:07)
== END 2017-07-11 13:25 | disposition home health service (06) | DRG 812 ==
LOC: ER 03:40 → MED 05:32
PROVIDERS: ADMIT Internal Medicine; ATTEND Internal Medicine
PROC: 30233N1 Transfusion of Nonautologous Red Blood Cells into Peripheral Vein, Percutaneous Approach (ICD-10-PCS; principal; 2017-07-10)
DX: D50.9 Iron deficiency anemia, unspecified (principal); N39.0 Urinary tract infection, site not specified; E87.1 Hypo-osmolality and hyponatremia; I50.32 Chronic diastolic (congestive) heart failure; I11.0 Hypertensive heart disease with heart failure; S30.0XXA Contusion of lower back and pelvis, initial encounter; E87.6 Hypokalemia; K21.9 Gastro-esophageal reflux disease without esophagitis; R19.5 Other fecal abnormalities; I44.7 Left bundle-branch block, unspecified; B96.1 Klebsiella pneumoniae [K. pneumoniae] as the cause of diseases classified elsewhere; W01.0XXA Fall on same level from slipping, tripping and stumbling without subsequent striking against object, initial encounter; Y92.810 Car as the place of occurrence of the external cause; Y99.8 Other external cause status; Z90.710 Acquired absence of both cervix and uterus; Z23 Encounter for immunization
CPT/HCPCS: 36415; 36430; 76999; 81001; 82040; 82150; 82247; 82274; 82310; 82374; 82435; 82565; 82607; 82746; 82947; 83540; 83550; 83690; 83735; 83935; 84075; 84132; 84134; 84155; 84295; 84300; 84450; 84460; 84484; 84520; 85025; 85610; 85730; 86850; 86900; 86901; 86920; 87077; 87088; 87186; 90471; 90674; 93005; 96374; 96375; 97161; 97165; 99285; J2405; J3010; J3475; J3480; J7030; J7040; P9016

== ENCOUNTER → 2017-07-08 | Outpatient (CLI) | payer MEDICARE ==
[~2017-07-08] MED LIST: AML5 PO; AMLO-96 PO; AMLO-99 PO; AMOX-559 PO; ASPI-1471 PO; BACI3.5O25 OS; CEFU250T11 PO; CHOL10005 PO; CYA1000 PO; FERR-53 PO; FLU45SYR17 IM; LEVO-85 PO; LISI-351 PO; LISI-355 PO; LISI20TA29 PO; MIRT7.5T2 PO; MULT1CAP59 PO; OMEP-125 PO; OMEP-137 PO; OMEP40CA79 PO; ONDA4TAB97 PO; OXY5 PO; PNEU0.5D3 IM; POLY17PO25 PO; TRAM-420 PO; [UNRECOGNIZED DRUG - CODE] IM
[2017-07-08 08:21] VITALS: BMI 26.1
== END ==
LOC: AMB 03:22
PROVIDERS: ATTEND Nurse Practitioner
DX: S30.0XXA Contusion of lower back and pelvis, initial encounter (principal); M25.552 Pain in left hip; W18.39XA Other fall on same level, initial encounter
CPT/HCPCS: A0425; A0427

== ENCOUNTER → 2017-08-15 | Outpatient (CLI) | payer MEDICARE ==
[2017-07-08 08:21] VITALS: BMI 26.1
[~2017-08-15] MED LIST changes: +CYA1000 PO; +FERR-53 PO; +LEVO-85 PO; +OMEP-125 PO
[2017-08-15 11:21] LABS: PLATELET COUNT, AUTOMATED 183 K/uL (150-450)
== END ==
LOC: LAB 11:03
PROVIDERS: ATTEND Nurse Practitioner Family
DX: D64.9 Anemia, unspecified (principal); E87.1 Hypo-osmolality and hyponatremia; I10 Essential (primary) hypertension
CPT/HCPCS: 36415; 82040; 82247; 82310; 82374; 82435; 82565; 82947; 84075; 84132; 84155; 84295; 84450; 84460; 84520; 85025

== ENCOUNTER → 2017-09-15 | Outpatient (CLI) | payer MEDICARE ==
[2017-07-08 08:21] VITALS: BMI 26.1
[2017-09-15 12:50] LABS: PLATELET COUNT, AUTOMATED 219 K/uL (150-450)
== END ==
LOC: LAB 12:33
PROVIDERS: ATTEND Nurse Practitioner Family
DX: D64.9 Anemia, unspecified (principal); E87.1 Hypo-osmolality and hyponatremia; R73.09 Other abnormal glucose
CPT/HCPCS: 36415; 82040; 82247; 82310; 82374; 82435; 82565; 82947; 83036; 84075; 84132; 84155; 84295; 84450; 84460; 84520; 85025

== ENCOUNTER → 2017-10-13 | Outpatient (CLI) | payer MEDICARE ==
[2017-07-08 08:21] VITALS: BMI 26.1
[2017-10-13 13:58] LABS: PLATELET COUNT, AUTOMATED 266 K/uL (150-450)
== END ==
LOC: LAB 13:45
PROVIDERS: ATTEND Nurse Practitioner Family
DX: I10 Essential (primary) hypertension (principal); R71.8 Other abnormality of red blood cells; F10.10 Alcohol abuse, uncomplicated
CPT/HCPCS: 36415; 82607; 82728; 82746; 83540; 83550; 83921; 84443; 85025; G0480; 80320; 82040; 82247; 82310; 82374; 82435; 82565; 82947; 84075; 84132; 84155; 84295; 84450; 84460; 84520

== ENCOUNTER → 2018-01-03 | Outpatient (CLI) | payer MEDICARE, MEDICAID ==
[2017-07-08 08:21] VITALS: BMI 26.1
[2018-01-03 12:16] LABS: PLATELET COUNT, AUTOMATED 211 K/uL (150-450)
== END ==
LOC: LAB 11:55
PROVIDERS: ATTEND Nurse Practitioner Family
DX: D64.9 Anemia, unspecified (principal); I10 Essential (primary) hypertension; R53.83 Other fatigue; R71.8 Other abnormality of red blood cells
CPT/HCPCS: 36415; 82040; 82247; 82310; 82374; 82435; 82565; 82607; 82728; 82746; 82947; 83540; 83550; 84075; 84132; 84155; 84295; 84443; 84450; 84460; 84520; 85025; 86140

== ENCOUNTER 2018-01-30 15:41 | Inpatient (IN) | payer MEDICARE, MEDICAID ==
[~2018-01-30] VITALS: Ht 157.5 cm; Wt 58.5 kg
--- NOTE | 2018-01-30 15:50 | ER Report ---
History and Physical Time Seen By MD: 15:50 HPI/ROS CHIEF COMPLAINT: Abdominal discomfort HISTORY OF PRESENT ILLNESS: 82-year-old female patient presents to emergency room with complaint of abdominal discomfort. Patient states that she typically drinks a beer a day. She's not had any beer for the last several days. Her neighbor states that she typically drinks a sixpack a day. She has a mother neighbor who typically goes and brings her alcohol. She states that she believes she is not had any alcohol since Tuesday. Patient states that she has been voiding normally. States she's not had anything to eat because her stomach so upset. Patient denies any fevers, chills, nausea, vomiting or diarrhea. Patient denies any urinary problems. REVIEW OF SYSTEMS: Respiratory: No cough, no dyspnea. Cardiovascular: No chest pain, no palpitations. Gastrointestinal: As noted above Musculoskeletal: No back pain. Allergies: Coded Allergies: No Known Drug Allergies (Unverified , 01/30/18) Home Meds Active Scripts Mirtazapine (MIRTAZAPINE) 7.5 Mg Tablet, 1 TAB PO QHS, #30 TAB Prov:HEENA KAPADIA APRN NETWORK DEVELOPER-C 09/15/17 Ferrous Sulfate (FERROUS SULFATE) 325 Mg Tablet, 1 TAB PO BIDBS, #60 TAB 0 Refills Prov:HEENA KAPADIA APRN NETWORK DEVELOPER-C 08/15/17 Amlodipine Besylate (AMLODIPINE BESYLATE) 5 Mg Tablet, 1 TAB PO QDAY, #90 TAB 1 Refill Prov:HEENA KAPADIA APRN NETWORK DEVELOPER-C 07/12/17 Omeprazole (OMEPRAZOLE) 20 Mg Capsule.dr, 20 MG PO QDAY, #90 CAP 3 Refills Prov:HEENA KAPADIA APRN NETWORK DEVELOPER-C 07/12/17 Lisinopril (LISINOPRIL) 20 Mg Tablet, 20 MG PO QDAY, #90 TAB 1 Refill Prov:HEENA KAPADIA APRN NETWORK DEVELOPER-C 07/12/17 Cyanocobalamin (Vitamin B-12) (VITAMIN B-12) 1,000 Mcg Tablet, 1000 MCG PO QDAY for 30 Days, #30 TAB Prov:LOU DC MD 07/11/17 Reported Medications Cholecalciferol (Vitamin D3) (VITAMIN D3) 1,000 Unit Tablet, 1 TAB PO DAILY 03/04/14 Past Medical/Surgical History Patient has a past medical history of hypertension, pneumonia, reflux, weakness in the right arm, arthritis, hemorrhage with childbearing, alcohol abuse. Patient has surgical history of tonsillectomy, hysterectomy, cholecystectomy. Patient has a family medical history of cancer, CAD, stroke. Reviewed Nurses Notes: Yes Hx Smoking: No Smoking Status: Never Smoker Exposure to Second Hand Smoke?: Yes (in the past in car with ) Hx Substance Use Disorder: No Hx Alcohol Use: Yes Constitutional Vital Sign - Last 24 Hours 01/30/18 01/30/18 01/30/18 01/30/18 15:45 15:48 15:56 16:00 Temp 99.1 Pulse 103 102 Resp 14 28 B/P (MAP) 168/83 168/63 (98) 171/63 (99) Pulse Ox 92 91 O2 Delivery Room Air Room Air 01/30/18 01/30/18 01/30/18 01/30/18 16:11 16:26 16:31 17:00 Pulse 101 100 98 Resp 16 18 24 B/P (MAP) 162/53 (89) Pulse Ox 89 90 92 O2 Delivery Room Air Room Air Room Air 01/30/18 01/30/18 01/30/18 17:01 17:30 17:31 Pulse 98 96 Resp 19 18 B/P (MAP) 169/58 (95) Pulse Ox 84 89 O2 Delivery Room Air Room Air Intake and Output 01/30/18 01/30/18 01/31/18 15:00 23:00 07:00 Intake Total 500 ml Balance 500 ml Physical Exam General Appearance: The patient is alert, has no immediate need for airway protection and no current signs of toxicity. Respiratory: Chest is non tender, lungs are clear to auscultation. Cardiac: regular rate and rhythm Gastrointestinal: Abdomen is soft and non tender, no masses, bowel sounds normal. Musculoskeletal: Neck: Neck is supple and non tender. Extremities have full range of motion and are non tender. Skin: No rashes or lesions. DIFFERENTIAL DIAGNOSIS: After history and physical exam differential diagnosis was considered for abdominal pain including but not limited to appendicitis, cholecystitis, gastritis and urinary tract infection. Medical Decision Making Data Points Result Diagram: 01/30/18 1600 01/30/18 1600 Laboratory Hematology Test 8/20/18 16:00 Red Blood Count 5.35 M/uL (4.17-5.56) Mean Corpuscular Volume 76.0 fL (80.0-96.0) Mean Corpuscular Hemoglobin 25.6 pg (26.0-33.0) Mean Corpuscular Hemoglobin Concent 33.7 g/dL (32.0-36.0) Red Cell Distribution Width 15.4 % (11.5-14.5) Mean Platelet Volume 8.4 fL (7.2-11.1) Neutrophils (%) (Auto) 72.7 % (39.4-72.5) Lymphocytes (%) (Auto) 14.6 % (17.6-49.6) Monocytes (%) (Auto) 11.3 % (4.1-12.4) Eosinophils (%) (Auto) 0.1 % (0.4-6.7) Basophils (%) (Auto) 1.3 % (0.3-1.4) Nucleated RBC Relative Count (auto) 0.0 /100WBC Neutrophils # (Auto) 4.4 K/uL (2.0-7.4) Lymphocytes # (Auto) 0.9 K/uL (1.3-3.6) Monocytes # (Auto) 0.7 K/uL (0.3-1.0) Eosinophils # (Auto) 0.0 K/uL (0.0-0.5) Basophils # (Auto) 0.1 K/uL (0.0-0.1) Nucleated RBC Absolute Count (auto) 0.00 K/uL Prothrombin Time 12.9 seconds (12.0-14.4) Prothromb Time International Ratio 0.97 Activated Partial Thromboplast Time 27 seconds (23-35) Sodium Level 125 mmol/L (137-145) Potassium Level 3.9 mmol/L (3.5-5.0) Chloride Level 88 mmol/L (98-107) Carbon Dioxide Level 25 mmol/L (22-31) Blood Urea Nitrogen 10 mg/dl (7-18) Creatinine 0.80 mg/dl (0.52-1.04) Glomerular Filtration Rate Calc > 60.0 Random Glucose 130 mg/dl (75-110) Calcium Level 9.2 mg/dl (8.4-10.2) Total Bilirubin 0.5 mg/dl (0.2-1.3) Aspartate Amino Transf (AST/SGOT) 33 U/L (0-35) Alanine Aminotransferase (ALT/SGPT) 20 U/L (0-56) Alkaline Phosphatase 73 U/L (0-126) Total Protein 7.6 g/dl (6.3-8.2) Albumin 4.6 g/dl (3.5-5.0) Amylase Level 83 U/L (0-110) Lipase 120 U/L (23-300) Serum Alcohol < 10 mg/dl Helicobacter pylori IgG Antibody Negative (NEGATIVE) Chemistry Test 01/30/18 16:00 White Blood Count 6.1 k/uL (4.5-11.0) Red Blood Count 5.35 M/uL (4.17-5.56) Hemoglobin 13.7 g/dL (12.0-16.0) Hematocrit 40.7 % (34.0-47.0) Mean Corpuscular Volume 76.0 fL (80.0-96.0) Mean Corpuscular Hemoglobin 25.6 pg (26.0-33.0) Mean Corpuscular Hemoglobin Concent 33.7 g/dL (32.0-36.0) Red Cell Distribution Width 15.4 % (11.5-14.5) Platelet Count 208 K/uL (150-450) Mean Platelet Volume 8.4 fL (7.2-11.1) Neutrophils (%) (Auto) 72.7 % (39.4-72.5) Lymphocytes (%) (Auto) 14.6 % (17.6-49.6) Monocytes (%) (Auto) 11.3 % (4.1-12.4) Eosinophils (%) (Auto) 0.1 % (0.4-6.7) Basophils (%) (Auto) 1.3 % (0.3-1.4) Nucleated RBC Relative Count (auto) 0.0 /100WBC Neutrophils # (Auto) 4.4 K/uL (2.0-7.4) Lymphocytes # (Auto) 0.9 K/uL (1.3-3.6) Monocytes # (Auto) 0.7 K/uL (0.3-1.0) Eosinophils # (Auto) 0.0 K/uL (0.0-0.5) Basophils # (Auto) 0.1 K/uL (0.0-0.1) Nucleated RBC Absolute Count (auto) 0.00 K/uL Prothrombin Time 12.9 seconds (12.0-14.4) Prothromb Time International Ratio 0.97 Activated Partial Thromboplast Time 27 seconds (23-35) Glomerular Filtration Rate Calc > 60.0 Calcium Level 9.2 mg/dl (8.4-10.2) Total Bilirubin 0.5 mg/dl (0.2-1.3) Aspartate Amino Transf (AST/SGOT) 33 U/L (0-35) Alanine Aminotransferase (ALT/SGPT) 20 U/L (0-56) Alkaline Phosphatase 73 U/L (0-126) Total Protein 7.6 g/dl (6.3-8.2) Albumin 4.6 g/dl (3.5-5.0) Amylase Level 83 U/L (0-110) Lipase 120 U/L (23-300) Serum Alcohol < 10 mg/dl Helicobacter pylori IgG Antibody Negative (NEGATIVE) Coagulation Test 01/30/18 16:00 Prothrombin Time 12.9 seconds Prothromb Time International Ratio 0.97 Activated Partial Thromboplast Time 27 seconds Toxicology Test 01/30/18 16:00 Serum Alcohol < 10 mg/dl EKG/Imaging Imaging ABDOMEN/PELVIS WITH CONTRAST HISTORY: Abdomen pain TECHNIQUE: Following administration of IV contrast contiguous axial images acquired through the abdomen/pelvis. Coronal and sagittal reformatting also performed. Dose Lowering Technique One of the following dose optimization techniques was utilized in the performance of this exam: Automated exposure control; adjustment of the mA and/ or kV according to the patient's size; or use of an iterative reconstruction technique. Specific details can be referenced in the facility's radiology CT exam operational policy. CONTRAST: 75 mL Isovue-370 COMPARISON: None. FINDINGS: Visualized lung bases: Motion artifact present. There is a 2 mm noncalcified subpleural nodule posterior aspect of the right lower lobe best seen on image 65 of series 3 Hepatobiliary: There is fatty infiltration of the liver Spleen: Negative. Adrenals: There is nodular thickening of both adrenal glands Pancreas: Negative. Kidneys ureters or bladder: 6.3 cm anterior left renal cyst Urinary bladder is mildly distended there is mild thickening of the posterior wall the bladder Genitalia: Hysterectomy GI: There is diverticulosis of the left-sided colon although no CT evidence of acute diverticulitis. The cecum is located in the right upper quadrant of the abdomen above the level of the ascending colon which may indicate a mobile cecum. This a small hiatal hernia Vessels/spaces/nodes: There are mild vascular calcifications present Bones/soft tissues: There Is a 1.7 x 0.8 cm soft tissue nodule on the patient' s skin which extends posteriorly into the subcutaneous fat in the midline of the upper abdomen. Very dense tissue is identified in the inferior portion of the right breast which appears asymmetric when compared to the left and correlation with mammography and physical exam recommended There are spondylotic changes of the lumbar spine Additional findings: None pertinent. IMPRESSION: Diverticulosis left-sided colon although no CT evidence of acute diverticulitis The cecum is located in the right upper quadrant of abdomen above the level of the ascending colon which may indicate a mobile cecum. Small hiatal hernia 2 mm noncalcified subpleural nodule right lower lobe of doubtful significance Fatty infiltration of the liver Nodular thickening of both adrenal glands The urinary bladder is mildly distended and there is mild thickening of the posterior wall. Clinical correlation needed Soft tissue nodule extending from the skin into the subcutaneous fat in the midline of the upper abdomen. This may simply represent sebaceous cyst although clinical correlation needed. Very dense tissue is identified in the inferior portion right breast which appears asymmetric when compared to the left. Correlation with mammography and physical exam recommended Report Dictated By: Hialee Vogt MD at 01/30/2018 5:06 PM Report E-Signed By: Hailee Vogt MD at 01/30/2018 5:19 PM ED Course/Re-evaluation ED Course Patient was admitted to exam room, history and physical were obtained. Differential diagnoses were considered. On examination lungs are clear, heart was regular, abdomen was soft and nontender. A CBC, CMP, CT scan of abdomen and pelvis were done. Lab results showed the patient does have a sodium of 125. Patient had no elevated white count. She is not anemic. CT scan showed no acute findings. There was some thickening of the bladder wall which could be related to possible urinary tract infection. I discussed the findings with patient. I feel that with her low-sodium patient does need to be admitted. I discussed this with her and she agreed with that. I discussed the case with Dr. Jerri Engel [facility] who agreed to accept the patient for admission. I discussed this with the patient who verbalized understanding and agreement. Decision to Disposition Date: Jan 30, 2018 Decision to Disposition Time: 17:52 Depart Departure Latest Vital Signs Vital Signs Date Time Temp Pulse Resp B/P (MAP) Pulse Ox O2 Delivery O2 Flow Rate FiO2 01/30/18 17:31 96 18 89 Room Air 01/30/18 17:30 169/58 (95) 01/30/18 15:45 99.1 Impression: Primary Impression: Hyponatremia Additional Impression: Nausea Condition: Condition Unchanged Disposition: Admitted from ER Referrals: HEENA KAPADIA APRN NETWORK DEVELOPER-C (PCP) Problem Qualifiers MARIO PEÑA Jan 30, 2018 15:50
[2018-01-30] MEDS ORDERED: NS(*) 0.9% 500 ML BAG 500 ML IV ONE (15:58)
[2018-01-30] MEDS ORDERED: ONDANSETRON 4 MG/2 ML VIAL IVP ONE (16:00)
[2018-01-30] MEDS ORDERED: IOPAMIDOL 76% 75 ML INFUS BTL 75 ML ONE (16:09)
[2018-01-30 16:17] LABS: PLATELET COUNT, AUTOMATED 208 K/uL (150-450)
[2018-01-30 16:30] LABS: INR 0.97
--- NOTE | 2018-01-30 17:23 | RADIOLOGY IMAGING REPORT ---
FACILITY: [facility] - [place], [place] PATIENT NAME: Minna Metz : 1935 MR: [id number] V: [id number] EXAM DATE: ORDERING PHYSICIAN: MARIO PEÑA TECHNOLOGIST: [place] [facility] [place] Minna Metz : 1935 Visit/Account:[id number] Date of Sevice: 01/30/2018 ABDOMEN/PELVIS WITH CONTRAST HISTORY: Abdomen pain TECHNIQUE: Following administration of IV contrast contiguous axial images acquired through the abdom en/pelvis. Coronal and sagittal reformatting also performed. Dose Lowering Technique One of the following dose optimization techniques was utilized in the performance of this exam: Autom ated exposure control; adjustment of the mA and/or kV according to the patient's size; or use of an i terative reconstruction technique. Specific details can be referenced in the facility's radiology C T exam operational policy. CONTRAST: 75 mL Isovue-370 COMPARISON: None. FINDINGS: Visualized lung bases: Motion artifact present. There is a 2 mm noncalcified subpleural nodule post erior aspect of the right lower lobe best seen on image 65 of series 3 Hepatobiliary: There is fatty infiltration of the liver Spleen: Negative. Adrenals: There is nodular thickening of both adrenal glands Pancreas: Negative. Kidneys ureters or bladder: 6.3 cm anterior left renal cyst Urinary bladder is mildly distended there is mild thickening of the posterior wall the bladder Genitalia: Hysterectomy GI: There is diverticulosis of the left-sided colon although no CT evidence of acute diverticulitis. The cecum is located in the right upper quadrant of the abdomen above the level of the ascending colo n which may indicate a mobile cecum. This a small hiatal hernia Vessels/spaces/nodes: There are mild vascular calcifications present Bones/soft tissues: There Is a 1.7 x 0.8 cm soft tissue nodule on the patient's skin which extends p osteriorly into the subcutaneous fat in the midline of the upper abdomen. Very dense tissue is ident ified in the inferior portion of the right breast which appears asymmetric when compared to the left and correlation with mammography and physical exam recommended There are spondylotic changes of the lumbar spine Additional findings: None pertinent. IMPRESSION: Diverticulosis left-sided colon although no CT evidence of acute diverticulitis The cecum is located in the right upper quadrant of abdomen above the level of the ascending colon wh ich may indicate a mobile cecum. Small hiatal hernia 2 mm noncalcified subpleural nodule right lower lobe of doubtful significance Fatty infiltration of the liver Nodular thickening of both adrenal glands The urinary bladder is mildly distended and there is mild thickening of the posterior wall. Clinical correlation needed Soft tissue nodule extending from the skin into the subcutaneous fat in the midline of the upper abdo men. This may simply represent sebaceous cyst although clinical correlation needed. Very dense tissue is identified in the inferior portion right breast which appears asymmetric when co mpared to the left. Correlation with mammography and physical exam recommended Report Dictated By: Hailee Vogt MD at 01/30/2018 5:06 PM Report E-Signed By: Hailee Vogt MD at 01/30/2018 5:19 PM JENNIFER:SELENA
[2018-01-30 18:15] VITALS: BP 161/63
[2018-01-30] MEDS ORDERED: LORazepam 2 MG/ML VIAL IVP PRN (19:40)
[2018-01-30] MEDS ORDERED: LORazepam 1 MG TAB PO PRN (19:40)
[2018-01-30] MEDS ORDERED: INFLUENZA VIRUS VAC 0.5 ML SYR IM ONLY ONE (19:40)
[2018-01-30] MEDS ORDERED: ONDANSETRON 4 MG/2 ML VIAL IVP PRN (19:40)
[2018-01-30] MEDS ORDERED: NS(*) 0.9% 1000 ML BAG 1,000 ML IV PRN (19:40)
[2018-01-30] MEDS ORDERED: CALCIUM CARBONATE 500 MG CHEW PO PRN (20:00)
[2018-01-30] MEDS ORDERED: MELATONIN 3 MG TAB PO PRN (20:00)
--- NOTE | 2018-01-30 20:20 | History & Physical ---
History of Present Illness Chief Complaint dizziness History of Present Illness 82F presented to ER with complaint of dizziness on standing. Noted to have hyponatremia of 125 on labs. Further information from patients welfare case worker and HH aid as well as neighbor reveal a woman who drinks at least 6 beers daily and is often found intoxicated. Concern also raised about memory problems and concern for her and public safety as she still drives but neighbor reports will forget which is gas/brake and found sitting in car. Neighbor reports she has adult children living in [place]. History Problems: (1) CAD (coronary artery disease) Status: Chronic (2) Hypertension, benign Status: Chronic (3) GERD (gastroesophageal reflux disease) Status: Chronic Home Meds Active Scripts Mirtazapine (MIRTAZAPINE) 7.5 Mg Tablet, 1 TAB PO QHS, #30 TAB Prov:HEENA KAPADIA APRN [employer] SUPERVISOR-C 09/15/17 Ferrous Sulfate (FERROUS SULFATE) 325 Mg Tablet, 1 TAB PO BIDBS, #60 TAB 0 Refills Prov:HEENA KAPADIA APRNP-C 08/15/17 Amlodipine Besylate (AMLODIPINE BESYLATE) 5 Mg Tablet, 1 TAB PO QDAY, #90 TAB 1 Refill Prov:HEENA KAPADIA APRNP-C 07/12/17 Omeprazole (OMEPRAZOLE) 20 Mg Capsule.dr, 20 MG PO QDAY, #90 CAP 3 Refills Prov:HEENA KAPADIA APRN [employer] SUPERVISOR-C 07/12/17 Lisinopril (LISINOPRIL) 20 Mg Tablet, 20 MG PO QDAY, #90 TAB 1 Refill Prov:HEENA KAPADIA APRNP-C 07/12/17 Cyanocobalamin (Vitamin B-12) (VITAMIN B-12) 1,000 Mcg Tablet, 1000 MCG PO QDAY for 30 Days, #30 TAB Prov:LOU DC MD 07/11/17 Discontinued Reported Medications Cholecalciferol (Vitamin D3) (VITAMIN D3) 1,000 Unit Tablet, 1 TAB PO DAILY 03/04/14 Allergies: Coded Allergies: No Known Drug Allergies (Unverified , 01/30/18) Patient History: FH: cancer FATHER (Grew up mostly in foster care - most family history is unknown), , Age:60 years and older MOTHER (Grew up mostly in foster care - most family history is unknown), Unknown FATHER (Grew up mostly in foster care - most family history is unknown), , Age:60 years and older BROTHER OR SISTER (grew up mostly in foster cared - not much history is known) Grandmother (Lived to be 115), , Age:115 Hx Smoking: No Smoking Status: Never Smoker Exposure to Second Hand Smoke?: Yes (in the past in car with ) Caffeine Intake: Coffee Caffeine/Cups Per Day: 1 cup in AM Hx Alcohol Use: Yes Alcohol Used: Beer (daily) Hx Substance Use Disorder: No Social Drug Use: Never Review of Systems All Systems Reviewed/Normal: Yes, Except as Noted Neurological: Confusion, Dizziness Respiratory: No Shortness of Breath Gastrointestinal: No Nausea, No Vomiting Genitourinary: No Dysuria Musculoskeletal: No Pain Psychiatric: Anxiety Exam Vital Signs Vital Signs Date Time Temp Pulse Resp B/P (MAP) Pulse Ox O2 Delivery O2 Flow Rate FiO2 01/30/18 18:15 98.3 91 18 161/63 (95) 97 Nasal Cannula 2.0 General Appearance: Alert, Awake, No Acute Distress Neuro: No Gross deficits Eyes: PERRLA ENT: Normal (dry mucosa) Neck: No Masses Cardiovascular: Normal Rhythm & Peripheral Pulses Respiratory: No Respiratory Distress Chest: No Tenderness GI: Abd Soft and Non-Tender Lymph: Cervical Nodes Benign Musculoskeletal: No Weakness/Pain Extremities: Soft and Non Tender, Warm, Pulses, No Edema Integumentary: Skin Intact without Lesion / Mass Psych: Other (repetitive, appears confused, oriented to person and place only) Medical Decision Making Data Points Result Diagram: 01/30/18 1600 01/30/18 1600 Assessment and Plan Problems: (1) Encephalopathy Assessment & Plan: Unknown baseline, concerns raised by HH aid, CM, and neighbor. Possible 2/2 EtOH encephalopathy vs withdrawal vs dementia vs hyponatremia. TSH and B12 pending. Begin CIWA, will need neurocognitive evaluation if other causes of encephalopathy are ruled out to evaluate for dementia. (2) Hyponatremia Status: Acute Assessment & Plan: Likely 2/2 EtOH abuse and beer potomania. IV NS, monitor Na. Recheck this charmaine and in am. Could be cause of confusion as well. (3) Alcohol abuse Assessment & Plan: Per pt one beer daily, other sources note 6 pack per day and often intoxicated. Denies withdrawal symptoms in past. Begin CIWA, PRN Ativan for withdrawal. (4) GERD (gastroesophageal reflux disease) Status: Chronic Assessment & Plan: Continue PPI (5) Anemia Status: Chronic Assessment & Plan: Microcytic, Hgb WNL on admission but suspect hemoconcentrated. Home iron and B12 replacement, continue inpatient. Likely iron deficiency based on reported poor PO intake. Central Venous Access Medical Necessity for Access: IV Access Venous Thromboembolism Antithrombotics Is Pt On Any Antithrombotics?: No (SCD only) Exam Sepsis Risk: No Definite Risk BRANDO CULVER DO Jan 30, 2018 20:20
[2018-01-30] MEDS: FOLIC ACID 1 MG TAB PO SCH (20:45)
[2018-01-30] MEDS: amLODIPine BESYL(*) 5 MG TAB PO SCH (20:45)
[2018-01-30] MEDS: THIAMINE HCL 100 MG TAB PO SCH (20:45)
[2018-01-30] MEDS: PANTOPRAZOLE SOD 40 MG TABEC PO SCH (20:45)
[2018-01-30] MEDS: SIMETHICONE 80 MG CHEW CHEW PRN (20:45)
[2018-01-30 22:26] VITALS: BP 150/87
[2018-01-31 07:52] VITALS: BP 152/59
[2018-01-31] MEDS: amLODIPine BESYL(*) 5 MG TAB PO SCH (08:37)
[2018-01-31] MEDS: PANTOPRAZOLE SOD 40 MG TABEC PO SCH (08:37)
[2018-01-31] MEDS: FOLIC ACID 1 MG TAB PO SCH (08:37)
[2018-01-31] MEDS: LISINOPRIL 20 MG TAB PO SCH (08:37)
[2018-01-31] MEDS: THIAMINE HCL 100 MG TAB PO SCH (08:37)
[2018-01-31 10:16] VITALS: Ht 157.5 cm; Wt 58.5 kg
--- NOTE | 2018-01-31 11:03 | Hospitalist Progress Note ---
Subjective Progress Notes Subjective She reports doing "better today". Appetite diminished. Physical Exam Vital Signs Date Time Temp Pulse Resp B/P (MAP) Pulse Ox O2 Delivery O2 Flow Rate FiO2 01/31/18 10:39 90 01/31/18 07:52 97.6 70 16 152/59 (90) Nasal Cannula 0.5 Intake and Output 02/01/18 07:00 Intake Total 1220 ml Balance 1220 ml Intake Oral 240 ml IV Total 980 ml # Voids 3 General Appearance: Alert, Awake Neuro: No Gross deficits Cardiovascular: Regular Rate and Rhythm Respiratory: Clear to Auscultation GI: Soft and Non-Tender Extremities: Warm, Perfused Result Diagram: 01/30/18 1600 01/31/18 0530 Assessment and Plan Problems: (1) Encephalopathy Assessment & Plan: She does appear to have some cognitive deficit. Possibly secondary to chronic alcohol use vs. withdrawal vs. dementia vs. acute ( hyponatremia). TSH and B12 pending. Continue CIWA. Will have cognitive evaluation with Speech Therapy. (2) Hyponatremia Status: Acute Assessment & Plan: Improved. Likely due to alcohol abuse and beer potomania. IV NS, monitor labs. (3) Alcohol abuse Assessment & Plan: Per patient one beer daily, but other sources note 6 pack per day and often intoxicated. Denies withdrawal symptoms in past. Continue CIWA , PRN Ativan for withdrawal. (4) GERD (gastroesophageal reflux disease) Status: Chronic Assessment & Plan: Continue PPI (5) Anemia Status: Chronic Assessment & Plan: Microcytic, Hgb/Hct in normal range on admission. Will check iron studies. Central Venous Access Medical Necessity for Access: IV Access Exam Sepsis Risk: No Definite Risk GEORGES AMOS MD Jan 31, 2018 11:03
[2018-01-31 11:18] VITALS: BP 165/65
[2018-01-31 15:05] VITALS: BP 136/67
[2018-01-31 19:11] VITALS: BP 146/60
[2018-01-31] MEDS: SIMETHICONE 80 MG CHEW CHEW PRN (20:51)
[2018-01-31] MEDS: ACETAMINOPHEN 325 MG TAB PO PRN (22:53)
[2018-02-01 03:32] VITALS: BP 125/76
[2018-02-01] MEDS: SIMETHICONE 80 MG CHEW CHEW PRN (03:49)
[2018-02-01] MEDS: ACETAMINOPHEN 325 MG TAB PO PRN (05:45)
[2018-02-01 06:07] LABS: PLATELET COUNT, AUTOMATED 192 K/uL (150-450)
[2018-02-01 07:20] VITALS: BP 131/73
--- NOTE | 2018-02-01 10:40 | Hospitalist Depart ---
Discharge Summary Reason for Hosp/Final Diag: (1) Encephalopathy Hospital Course & Plan: She does appear to have some cognitive deficit. Possi dm secondary to chronic alcohol use vs. withdrawal vs. dementia vs. acute (hyponatremia). TSH within normal range and B12 pending. Cognitive evaluation with Speech Therapy completed recommending cognitive therapy with home health. (2) Hyponatremia Status: Acute Hospital Course & Plan: Improved. Likely due to alcohol abuse and beer potomania. Improved. (3) Alcohol abuse Hospital Course & Plan: Per patient one beer daily, but other sources note 6 pack per day and often intoxicated. Denies withdrawal symptoms in past. She did not require any medication for withdraw. (4) GERD (gastroesophageal reflux disease) Status: Chronic Hospital Course & Plan: Continue PPI (5) Anemia Status: Chronic Hospital Course & Plan: Microcytic, Hgb/Hct in normal range on admission. Will check iron studies, she will follow up with PCP for further anemia recommendations. Departure Latest Vital Signs Vital Signs 02/01/18 07:20 Temp 98.3 Pulse 88 Resp 16 B/P (MAP) 131/73 (92) Pulse Ox 95 O2 Delivery Room Air O2 Flow Rate 0.5 Weight (Pounds): 129 Result Diagram: 02/01/1855 02/01/1855 Condition: Improved Discharge: Home, Home Health PT/OT Follow Up For: PT For Strengthening, OT For ADL's, PT Evaluation and Treat, ST Evaluation and Treat Discharge Instructions Home Meds Active Scripts Mirtazapine (MIRTAZAPINE) 7.5 Mg Tablet, 1 TAB PO QHS, #30 TAB Prov:HEENA KAPADIA APRN SANITATION INSPECTOR-C 09/15/17 Ferrous Sulfate (FERROUS SULFATE) 325 Mg Tablet, 1 TAB PO BIDBS, #60 TAB 0 Refills Prov:HEENA KAPADIA APRN SANITATION INSPECTOR-C 08/15/17 Amlodipine Besylate (AMLODIPINE BESYLATE) 5 Mg Tablet, 1 TAB PO QDAY, #90 TAB 1 Refill Prov:HEENA KAPADIA APRN SANITATION INSPECTOR-C 07/12/17 Omeprazole (OMEPRAZOLE) 20 Mg Capsule.dr, 20 MG PO QDAY, #90 CAP 3 Refills Prov:HEENA KAPADIA APRN SANITATION INSPECTOR-C 07/12/17 Lisinopril (LISINOPRIL) 20 Mg Tablet, 20 MG PO QDAY, #90 TAB 1 Refill Prov:HEENA KAPADIA APRN-C 07/12/17 Cyanocobalamin (Vitamin B-12) (VITAMIN B-12) 1,000 Mcg Tablet, 1000 MCG PO QDAY for 30 Days, #30 TAB Prov:LOU DC MD 07/11/17 Discontinued Reported Medications Cholecalciferol (Vitamin D3) (VITAMIN D3) 1,000 Unit Tablet, 1 TAB PO DAILY 03/04/14 Diet: Regular Activity: As Tolerated Copies to: HEENA KAPADIA APRN-C ; Venous Thromboembolism Antithrombotics Is Pt On Any Antithrombotics?: No (SCD only) [id number] Certification Face to Face Home Health Certification Institutional Provider conducted the [id number] encounter. Electronic Undersigning Physician Certifies Home Health. I certify that the patient has been under my care and that I had a [id number] encounter that meets the physician [id number] encounter requirements with this patient. This patient is home-bound due to safety issues and continues to require assistance with ADL's. I certify that based on my findings, that Nursing, Aides and the following Home Health services are medically necessary. Medical Necessity: Nursing, Rehab Date Face to Face Conducted: Feb 01, 2018 BRITTNEY COE Feb 01, 2018 10:40
[2018-02-01] MEDS: amLODIPine BESYL(*) 5 MG TAB PO SCH (10:55)
[2018-02-01] MEDS: PANTOPRAZOLE SOD 40 MG TABEC PO SCH (10:55)
[2018-02-01] MEDS: LISINOPRIL 20 MG TAB PO SCH (10:55)
[2018-02-01] MEDS: FOLIC ACID 1 MG TAB PO SCH (10:55)
[2018-02-01] MEDS: THIAMINE HCL 100 MG TAB PO SCH (10:55)
--- NOTE | 2018-02-01 12:01 | SPEECH INITIAL EVALUATION ---
INITIAL SPEECH THERAPY EVALUATION REPORT Cognitive Communication Assessment Patient Name: Minna Metz Date of Evaluation: 02/01/2018 Patient : 1935 Clinician: Laurence Mosqueda M.S., [facility]-VICE PRESIDENT QUALITY ASSURANCE Treatment Dx: Moderate to severe cognitive communicative deficit BACKGROUND The patient is an 82 year old female admitted to [facility] through the ED following complaints of dizziness while standing. The pt was noted to have hyponatremia upon admission. Concern was also raised re: memory deficits, potential alcohol abuse, and public safety d/t insistence on continuing to drive despite neighbors report that she often forgets which is gas vs break. ST was referred to analyze pts cognition and develop appropriate recommendations for safe and successful discharge to prior living environment. SPEECH: WFL. VOICE: WFL. DYSPHAGIA: WFL w/ h20 screen. No complaints. LANGUAGE/COGNITION The Eduardo Cognitive Assessment (MoCA) 7.3 alternative version was administered with the following results: -MoCA Total Score (TS): 10/30 = moderate to severe cognitive impairment -Cognitive Domains Demonstrating Deficits: attention, immediate memory, short- term memory, working memory, orientation, visuospatial skills and executive function. -Cognitive Domains Demonstrating Strength: item naming, abstraction. Pt struggled to identify errors during assessment tasks, and became easily distracted with multiple story repetitions throughout evaluation procedures. Pt frequently struggled to recall task instructions immediately following verbal presentation of information. Pt w/ poor insight re: cognitive linguistic deficits, insisting on ability to resume driving tasks, manage own medications, and handle finances independently. Pt untimely endorsed the benefits of receiving assistance with additional discussion. However, recall of this conversation is unlikely. Per RN report, the pt is scheduled to discharge home today with services and support via family, friends, and neighbor. Overall, the pt presents w/ moderate to severe, widespread cognitive communicative deficits. The pt is judged to be unsafe for discharge to prior living environment without daily supervision (03/01 would be ideal) and support for completion of all IADL s. It is also recommended that the patient receive ST services in d/c environment. Results indicate the patient may demonstrate impairments completing the following activities: Safe meal preparation Driving Attending to and removing environmental hazards/obstacles Sequencing for activities of daily living Coordinating and remembering to attend medical appointments Execution of simple or complex instructions for safety and medical purposes Independent medication management Independent nonprofit financial controller RECOMMENDATIONS ST services Daily supervision (03/01 would be optimal) Assistance with all IADL tasks Thank you for this referral. Please call [phone] Laurence Mosqueda M.S., [facility]-VICE PRESIDENT QUALITY ASSURANCE [*] VIVEK
== END 2018-02-01 13:15 | disposition home health service (06) | DRG 71 ==
LOC: ER 15:52 → MED 17:50
PROVIDERS: ADMIT Internal Medicine; ATTEND Internal Medicine
DX: G93.40 Encephalopathy, unspecified (principal); E87.1 Hypo-osmolality and hyponatremia; I10 Essential (primary) hypertension; K21.9 Gastro-esophageal reflux disease without esophagitis; I25.10 Atherosclerotic heart disease of native coronary artery without angina pectoris; D50.9 Iron deficiency anemia, unspecified; Z90.710 Acquired absence of both cervix and uterus; Z90.49 Acquired absence of other specified parts of digestive tract
CPT/HCPCS: 36415; 74177; 80320; 81001; 82040; 82150; 82247; 82310; 82374; 82435; 82565; 82607; 82728; 82947; 83540; 83550; 83690; 84075; 84132; 84155; 84295; 84443; 84450; 84460; 84520; 85025; 85610; 85730; 86677; 96361; 96374; 97161; 97165; 99283; J2405; J7030; J7040; Q9967

== ENCOUNTER → 2018-01-30 | Outpatient (CLI) | payer MEDICARE, MEDICAID ==
[2018-01-31 10:16] VITALS: BMI 23.6
== END ==
LOC: AMB 15:27
PROVIDERS: ATTEND Nurse Practitioner
DX: R10.9 Unspecified abdominal pain (principal); R11.10 Vomiting, unspecified
CPT/HCPCS: A0425; A0429

== ENCOUNTER 2018-02-14 16:33 | Inpatient (IN) | payer MEDICARE, MEDICAID ==
[~2018-02-14] VITALS: Ht 157.5 cm; Wt 56.7 kg
[~2018-02-14 16:33] MED LIST changes: +AMLO-111 PO; +AMLO-113 PO; -AMLO-96 PO; -AMLO-99 PO
--- NOTE | 2018-02-14 16:37 | ER Report ---
History and Physical Time Seen By MD: 16:37 HPI/ROS CHIEF COMPLAINT: Abdominal pain HISTORY OF PRESENT ILLNESS: This is an 82-year-old female who presents to the emergency department via EMS for abdominal pain. Patient states that this morning she drank a beer to help her go to sleep, threw up after drinking the beer, and had some coffee and has had intermittent epigastric pain since then. Patient states she does have intermittent epigastric pain normally. Denies blood in the emesis. No diarrhea. No shortness of breath or chest pain. Patient denies pain radiating to the back. No recent illnesses, no fevers or chills. No rashes or headaches. Last bowel movement yesterday. The patient was also admitted on January 30, 2018 for hyponatremia. REVIEW OF SYSTEMS: Constitutional: No fever, no chills. Eyes: No discharge. ENT: No sore throat. Cardiovascular: No chest pain, no palpitations. Respiratory: No cough, no shortness of breath. Gastrointestinal: As above. Genitourinary: No hematuria. Musculoskeletal: No back pain. Skin: No rashes. Neurological: No headache. Allergies: Coded Allergies: No Known Drug Allergies (Unverified , 02/14/18) Home Meds Active Scripts Mirtazapine (MIRTAZAPINE) 7.5 Mg Tablet, 1 TAB PO QHS, #30 TAB Prov:HEENA KAPADIA APRN-C 09/15/17 Ferrous Sulfate (FERROUS SULFATE) 325 Mg Tablet, 1 TAB PO BIDBS, #60 TAB 0 Refills Prov:HEENA KAPADIA APRN-C 08/15/17 Amlodipine Besylate (AMLODIPINE BESYLATE) 5 Mg Tablet, 1 TAB PO QDAY, #90 TAB 1 Refill Prov:HEENA KAPADIA APRN-C 07/12/17 Omeprazole (OMEPRAZOLE) 20 Mg Capsule.dr, 20 MG PO QDAY, #90 CAP 3 Refills Prov:HEENA KAPADIA APRN-C 07/12/17 Lisinopril (LISINOPRIL) 20 Mg Tablet, 20 MG PO QDAY, #90 TAB 1 Refill Prov:HEENA KAPADIA APRN-C 07/12/17 Cyanocobalamin (Vitamin B-12) (VITAMIN B-12) 1,000 Mcg Tablet, 1000 MCG PO QDAY for 30 Days, #30 TAB Prov:LOU DC MD 07/11/17 Past Medical/Surgical History The patient has a past medical and surgical history of hypertension, pneumonia, GERD, menopause, arthritis, glasses, hemorrhage secondary to childbirth, tonsillectomy. Hysterectomy. Cholecystectomy. Reviewed Nurses Notes: Yes Hx Smoking: No Smoking Status: Never Smoker Exposure to Second Hand Smoke?: Yes (in the past in car with ) Hx Substance Use Disorder: No Hx Alcohol Use: Yes Constitutional Vital Sign - Last 24 Hours 02/14/18 02/14/18 02/14/18 02/14/18 16:33 16:34 16:35 16:40 Temp 98.6 Pulse ??? 103 Resp 16 B/P (MAP) 235/199 235/199 (211) 197/126 (149) Pulse Ox 92 O2 Delivery Room Air 02/14/18 02/14/18 02/14/18 02/14/18 16:44 16:48 17:00 17:03 Pulse 99 91 Resp 19 21 B/P (MAP) 171/78 (109) 158/66 (96) Pulse Ox 92 91 02/14/18 02/14/18 02/14/18 02/14/18 17:18 17:33 17:46 17:48 Pulse 89 ??? 93 Resp 18 20 B/P (MAP) 169/75 (106) Pulse Ox 91 96 02/14/18 02/14/18 02/14/18 02/14/18 18:00 18:03 18:18 18:23 Pulse 85 89 87 Resp 20 16 33 B/P (MAP) 173/76 (108) Pulse Ox 94 90 92 02/14/18 02/14/18 02/14/18 02/14/18 18:30 18:38 18:53 18:58 Pulse 85 88 84 Resp 13 14 14 B/P (MAP) 144/63 (90) Pulse Ox 91 94 95 02/14/18 02/14/18 19:00 19:13 Pulse 81 Resp 23 B/P (MAP) 163/65 (97) Pulse Ox 91 Physical Exam General Appearance: The patient is alert, has no immediate need for airway protection and no signs of toxicity. Eyes: Pupils equal and round no pallor or injection. ENT, Mouth: Mucous membranes are moist. Respiratory: There are no retractions, lungs are clear to auscultation. Cardiovascular: Regular rate and rhythm, no murmurs, clicks or rubs. Gastrointestinal: Abdomen is soft , mild epigastric discomfort with palpation, no masses, hypoactive bowel sounds. Neurological: Alert and oriented 4. Moving all extremities. Following all commands. No focal neuro deficits. Skin: Warm and dry, no rashes. Musculoskeletal: Neck is supple non tender. Extremities are nontender, nonswollen and have full range of motion. DIFFERENTIAL DIAGNOSIS: After history and physical exam differential diagnosis was considered for abdominal pain including but not limited to appendicitis, cholecystitis, gastritis and urinary tract infection. Medical Decision Making Data Points Result Diagram: 02/14/18 1702 02/14/18 1702 Laboratory Hematology Test 02/14/18 17:02 02/14/18 17:48 Red Blood Count 4.84 M/uL (4.17-5.56) Mean Corpuscular Volume 76.8 fL (80.0-96.0) Mean Corpuscular Hemoglobin 25.5 pg (26.0-33.0) Mean Corpuscular Hemoglobin Concent 33.2 g/dL (32.0-36.0) Red Cell Distribution Width 15.2 % (11.5-14.5) Mean Platelet Volume 7.4 fL (7.2-11.1) Neutrophils (%) (Auto) 75.6 % (39.4-72.5) Lymphocytes (%) (Auto) 17.5 % (17.6-49.6) Monocytes (%) (Auto) 5.2 % (4.1-12.4) Eosinophils (%) (Auto) 0.6 % (0.4-6.7) Basophils (%) (Auto) 1.1 % (0.3-1.4) Nucleated RBC Relative Count (auto) 0.0 /100WBC Neutrophils # (Auto) 5.5 K/uL (2.0-7.4) Lymphocytes # (Auto) 1.3 K/uL (1.3-3.6) Monocytes # (Auto) 0.4 K/uL (0.3-1.0) Eosinophils # (Auto) 0.0 K/uL (0.0-0.5) Basophils # (Auto) 0.1 K/uL (0.0-0.1) Nucleated RBC Absolute Count (auto) 0.00 K/uL Sodium Level 129 mmol/L (137-145) Potassium Level 3.9 mmol/L (3.5-5.0) Chloride Level 94 mmol/L (98-107) Carbon Dioxide Level 23 mmol/L (22-31) Blood Urea Nitrogen 6 mg/dl (7-18) Creatinine 0.70 mg/dl (0.52-1.04) Glomerular Filtration Rate Calc > 60.0 Random Glucose 106 mg/dl (75-110) Calcium Level 9.0 mg/dl (8.4-10.2) Total Bilirubin 0.4 mg/dl (0.2-1.3) Aspartate Amino Transf (AST/SGOT) 23 U/L (0-35) Alanine Aminotransferase (ALT/SGPT) 16 U/L (0-56) Alkaline Phosphatase 65 U/L (0-126) Troponin I < 0.012 ng/ml Total Protein 7.3 g/dl (6.3-8.2) Albumin 4.3 g/dl (3.5-5.0) Lipase 137 U/L (23-300) Urine Color Colorless Urine Clarity Clear Urine pH 6.0 pH (4.8-9.5) Urine Specific [place] 1.001 Urine Protein Negative mg/dL (NEGATIVE) Urine Glucose (UA) Negative mg/dL (NEGATIVE) Urine Ketones Negative mg/dL (NEGATIVE) Urine Blood Negative (NEGATIVE) Urine Nitrite Negative (NEGATIVE) Urine Bilirubin Negative (NEGATIVE) Urine Urobilinogen Negative mg/dL (0.2-1.9) Urine Leukocyte Esterase Negative (NEGATIVE) Urine RBC None /HPF (0-2/HPF) Urine WBC <1 /HPF (0-5/HPF) Urine Squamous Epithelial Cells None /LPF (</=FEW) Urine Bacteria Negative /HPF (NONE-FEW) Urine Mucus None /HPF (NONE-FEW) Chemistry Test 02/14/18 17:02 02/14/18 17:48 White Blood Count 7.2 k/uL (4.5-11.0) Red Blood Count 4.84 M/uL (4.17-5.56) Hemoglobin 12.3 g/dL (12.0-16.0) Hematocrit 37.1 % (34.0-47.0) Mean Corpuscular Volume 76.8 fL (80.0-96.0) Mean Corpuscular Hemoglobin 25.5 pg (26.0-33.0) Mean Corpuscular Hemoglobin Concent 33.2 g/dL (32.0-36.0) Red Cell Distribution Width 15.2 % (11.5-14.5) Platelet Count 342 K/uL (150-450) Mean Platelet Volume 7.4 fL (7.2-11.1) Neutrophils (%) (Auto) 75.6 % (39.4-72.5) Lymphocytes (%) (Auto) 17.5 % (17.6-49.6) Monocytes (%) (Auto) 5.2 % (4.1-12.4) Eosinophils (%) (Auto) 0.6 % (0.4-6.7) Basophils (%) (Auto) 1.1 % (0.3-1.4) Nucleated RBC Relative Count (auto) 0.0 /100WBC Neutrophils # (Auto) 5.5 K/uL (2.0-7.4) Lymphocytes # (Auto) 1.3 K/uL (1.3-3.6) Monocytes # (Auto) 0.4 K/uL (0.3-1.0) Eosinophils # (Auto) 0.0 K/uL (0.0-0.5) Basophils # (Auto) 0.1 K/uL (0.0-0.1) Nucleated RBC Absolute Count (auto) 0.00 K/uL Glomerular Filtration Rate Calc > 60.0 Calcium Level 9.0 mg/dl (8.4-10.2) Total Bilirubin 0.4 mg/dl (0.2-1.3) Aspartate Amino Transf (AST/SGOT) 23 U/L (0-35) Alanine Aminotransferase (ALT/SGPT) 16 U/L (0-56) Alkaline Phosphatase 65 U/L (0-126) Troponin I < 0.012 ng/ml Total Protein 7.3 g/dl (6.3-8.2) Albumin 4.3 g/dl (3.5-5.0) Lipase 137 U/L (23-300) Urine Color Colorless Urine Clarity Clear Urine pH 6.0 pH (4.8-9.5) Urine Specific [place] 1.001 Urine Protein Negative mg/dL (NEGATIVE) Urine Glucose (UA) Negative mg/dL (NEGATIVE) Urine Ketones Negative mg/dL (NEGATIVE) Urine Blood Negative (NEGATIVE) Urine Nitrite Negative (NEGATIVE) Urine Bilirubin Negative (NEGATIVE) Urine Urobilinogen Negative mg/dL (0.2-1.9) Urine Leukocyte Esterase Negative (NEGATIVE) Urine RBC None /HPF (0-2/HPF) Urine WBC <1 /HPF (0-5/HPF) Urine Squamous Epithelial Cells None /LPF (</=FEW) Urine Bacteria Negative /HPF (NONE-FEW) Urine Mucus None /HPF (NONE-FEW) Urinalysis Test 02/14/18 17:48 Urine Color Colorless Urine Clarity Clear Urine pH 6.0 pH (4.8-9.5) Urine Specific [place] 1.001 Urine Protein Negative mg/dL (NEGATIVE) Urine Glucose (UA) Negative mg/dL (NEGATIVE) Urine Ketones Negative mg/dL (NEGATIVE) Urine Blood Negative (NEGATIVE) Urine Nitrite Negative (NEGATIVE) Urine Bilirubin Negative (NEGATIVE) Urine Urobilinogen Negative mg/dL (0.2-1.9) Urine Leukocyte Esterase Negative (NEGATIVE) Urine RBC None /HPF (0-2/HPF) Urine WBC <1 /HPF (0-5/HPF) Urine Squamous Epithelial Cells None /LPF (</=FEW) Urine Bacteria Negative /HPF (NONE-FEW) Urine Mucus None /HPF (NONE-FEW) EKG/Imaging EKG Interpretation 12 lead EKG: EKG 1655. Rhythm: Sinus rhythm, ventricular rate 92 bpm, PACs, left bundle branch block. [place]: normal QRS: normal ST segments: Left bundle branch block, underlying artifact. No significant changes from the 07/08/2017 EKG. Imaging Exam: ACUTE ABDOMEN SERIES 3 VIEW Indication: ABD PAIN, RAD Comparison: None available Findings: Single view of the chest shows normal cardiomediastinal contours. The lungs are clear. No effusion is identified. There is a nonobstructive bowel gas pattern present. There is no evidence of pneumoperitoneum. No abnormal masses or calcifications are identified. IMPRESSION: 1. Negative abdomen 2. Negative chest Report Dictated By: Arash Landin at 02/14/2018 6:32 PM Report E-Signed By: Arash Landin at 02/14/2018 6:33 PM [id number] ED Course/Re-evaluation Clinical Indication for ER IV: IV Access ED Course The patient was admitted to room via EMS. History of disc were obtained. Differential diagnoses were considered. An IV was started. Patient was given 4 mg IV Zofran. A GI cocktail. A CBC, CMP, troponin and UA were obtained. CBC unremarkable, chemistry showing sodium 129. Negative troponin. UA unremarkable. Three-view abdomen negative for any acute process. I did review the laboratory studies as well as the x-ray results with the patient. I did explain to the pat ient that I was concerned with the low sodium again, when she was discharged from the hospital sodium was 134. The patient is agreeable to an admission. I did speak with Dr. Kirkpatrick, who is accepted the patient into the hospital services for hyponatremia. 02/14/2018 7:03:26 pm I did speak with Dr. Kirkpatrick who has accepted the patient into the hospital services for hyponatremia. Decision to Disposition Date: Feb 14, 2018 Decision to Disposition Time: 18:54 Depart Departure Latest Vital Signs Vital Signs Date Time Temp Pulse Resp B/P (MAP) Pulse Ox O2 Delivery O2 Flow Rate FiO2 02/14/18 19:13 81 23 91 02/14/18 19:00 163/65 (97) 02/14/18 16:34 98.6 Room Air Impression: Primary Impression: Hyponatremia Condition: Improved Disposition: Admitted from ER Referrals: HEENA KPAADIA APRN OPTICAL ADVISOR-C (PCP) JUDY HARDEN OPTICAL ADVISOR-BC Feb 14, 2018 16:37
[2018-02-14] MEDS ORDERED: ONDANSETRON 4 MG/2 ML VIAL IVP ONE (16:50)
--- NOTE | 2018-02-14 17:03 | EKG ---
FACILITY: [facility] [place] PATIENT NAME: RAJ FREED : [id number] MR: [id number] V: [id number] EXAM DATE: ORDERING PHYSICIAN: JUDY HARDEN TECHNOLOGIST: Test Reason : epigastric pain Blood Pressure : / mmHG Vent. Rate : 092 BPM Atrial Rate : 092 BPM P-R Int : 160 ms QRS Dur : 140 ms QT Int : 434 ms P-R-T Axes : 073 -18 130 degrees QTc Int : 536 ms Sinus rhythm with occasional PVC's Left bundle branch block Abnormal ECG When compared with ECG of 08-JUL-2017 04:29, No significant change was found Confirmed by Elder Beasley ([id number]) on 02/14/2018 5:12:14 PM Referred By: Confirmed By:Elder Engel
[2018-02-14 17:09] LABS: PLATELET COUNT, AUTOMATED 342 K/uL (150-450)
[2018-02-14] MEDS ORDERED: LIDOCAINE 2% VISC SLN 15ML UDC PO ONE (18:05)
[2018-02-14] MEDS ORDERED: MAG HYD/AL HYD/SIMETH 30ML UDC PO ONE (18:05)
--- NOTE | 2018-02-14 18:37 | RADIOLOGY IMAGING REPORT ---
FACILITY: [facility] PATIENT NAME: Minna Metz : 1935 MR: [id number] V: [id number] EXAM DATE: ORDERING PHYSICIAN: JUDY HARDEN TECHNOLOGIST: Location: [facility] Patient: Minna Metz : 1935 Visit/Account:[id number] Date of Sevice: 02/14/2018 Exam: ACUTE ABDOMEN SERIES 3 VIEW Indication: ABD PAIN, RAD Comparison: None available Findings: Single view of the chest shows normal cardiomediastinal contours. The lungs are clear. No e ffusion is identified. There is a nonobstructive bowel gas pattern present. There is no evidence of pneumoperitoneum. No abn ormal masses or calcifications are identified. IMPRESSION: 1. Negative abdomen 2. Negative chest Report Dictated By: Arash Landin at 02/14/2018 6:32 PM Report E-Signed By: Arash Landin at 02/14/2018 6:33 PM [id number]
[2018-02-14 19:55] VITALS: BP 154/94
[2018-02-14] MEDS ORDERED: ONDANSETRON 4 MG/2 ML VIAL IVP PRN (20:10)
[2018-02-14] MEDS ORDERED: INFLUENZA VIRUS VAC 0.5 ML SYR IM ONLY ONE (20:10)
[2018-02-14] MEDS ORDERED: FLUSH 10 ML SYR IVP PRN (20:10)
[2018-02-14] MEDS ORDERED: LORazepam 1 MG TAB PO PRN (20:35)
--- NOTE | 2018-02-14 20:43 | History & Physical ---
History of Present Illness Chief Complaint Hyponatremia, dementia History of Present Illness 82F brought in by concerned neighbor who does not believe she can care for herself any longer. In ER noted to have hyponatremia , she was recently admitted and discharged with a presentation very similar. Per report she drinks more than she admits and has been found by HH and neighbor drunk. Little solute intake mainly beer. Cognitive evaluation last admission scored 7/10, recommendation for 24 hour care. Reversible causes of dementia were negative. Patient will likely need DPOA figured out and placement. History Unable To Obtain Past Medical: Unable to Obtain/Update Problems: (1) Hyponatremia Status: Acute (2) Anemia Status: Chronic (3) Alcohol abuse Home Meds Active Scripts Ferrous Sulfate (FERROUS SULFATE) 325 Mg Tablet, 1 TAB PO BIDBS, #60 TAB 0 Refills Prov:HEENA KAPADIA APRNP-C 08/15/17 Amlodipine Besylate (AMLODIPINE BESYLATE) 5 Mg Tablet, 1 TAB PO QDAY, #90 TAB 1 Refill Prov:HEENA KAPADIA APRN-C 07/12/17 Omeprazole (OMEPRAZOLE) 20 Mg Capsule.dr, 20 MG PO QDAY, #90 CAP 3 Refills Prov:HEENA KAPADIA APRNP-C 07/12/17 Lisinopril (LISINOPRIL) 20 Mg Tablet, 20 MG PO QDAY, #90 TAB 1 Refill Prov:HEENA KAPADIA APRNP-C 07/12/17 Cyanocobalamin (Vitamin B-12) (VITAMIN B-12) 1,000 Mcg Tablet, 1000 MCG PO QDAY for 30 Days, #30 TAB Prov:LOU DC MD 07/11/17 Allergies: Coded Allergies: No Known Drug Allergies (Unverified , 02/14/18) Patient History: FH: cancer FATHER (Grew up mostly in foster care - most family history is unknown), , Age:60 years and older MOTHER (Grew up mostly in foster care - most family history is unknown), Unknown FATHER (Grew up mostly in foster care - most family history is unknown), , Age:60 years and older BROTHER OR SISTER (grew up mostly in foster cared - not much history is known) Grandmother (Lived to be 115), , Age:115 Hx Smoking: No Smoking Status: Never Smoker Exposure to Second Hand Smoke?: Yes (in the past in car with ) Caffeine Intake: Coffee Caffeine/Cups Per Day: 1 cup in AM Hx Alcohol Use: Yes Alcohol Used: Beer Hx Substance Use Disorder: No Social Drug Use: Never Review of Systems All Systems Reviewed/Normal: Yes, Except as Noted Other poor historian, repetitive and unreliable Exam Vital Signs Vital Signs Date Time Temp Pulse Resp B/P (MAP) Pulse Ox O2 Delivery O2 Flow Rate FiO2 02/14/18 19:55 98.2 82 20 154/94 (114) 92 Room Air General Appearance: Alert, Awake, No Acute Distress Neuro: No Gross deficits Eyes: PERRLA (senile rings) ENT: Normal Neck: No Masses Cardiovascular: Normal Rhythm & Peripheral Pulses Respiratory: No Respiratory Distress GI: Abd Soft and Non-Tender Musculoskeletal: No Weakness/Pain Extremities: Soft and Non Tender, Warm, Pulses, Perfused; No Edema Integumentary: Skin Intact without Lesion / Mass Psych: Other (alert not oriented to place or time) Medical Decision Making Data Points Result Diagram: 02/14/18 1702 02/14/18 1702 Assessment and Plan Problems: (1) Dementia Assessment & Plan: Scored 7/10 on cognitive evaluation last admission. Reversible causes of dementia negative. Suspect alcohol encephalopathy vs small vessel disease vs Alzheimer Dz. Consult to Social Work to figure out who decision maker is and help arrange placement or 24 hour care. (2) Hyponatremia Status: Acute Assessment & Plan: 2/2 poor solute intake and beer potomania. Will give NaCl tablet and begin regular diet. No evidence of volume depletion. (3) Alcohol abuse Assessment & Plan: Per report drinks at least 6 pack daily, CIWA though did not require any intervention at last admission. Blood EtOH level pending. Central Venous Access Medical Necessity for Access: IV Access Venous Thromboembolism Antithrombotics Is Pt On Any Antithrombotics?: Yes Exam Sepsis Risk: No Definite Risk HARTMAN BRANDO KIM DO Feb 14, 2018 20:42
[2018-02-14] MEDS ORDERED: SODIUM CHLORIDE 1 GR TAB PO SCH (21:00)
[2018-02-14] MEDS: ACETAMINOPHEN 325 MG TAB PO PRN (21:09)
[2018-02-14] MEDS: MIRTAZAPINE 15 MG TAB PO SCH (21:09)
[2018-02-15 01:11] VITALS: BP 158/75
[2018-02-15 07:59] VITALS: BP 142/56
[2018-02-15] MEDS ORDERED: FERROUS SULFATE 325 MG TAB PO SCH (08:00)
[2018-02-15] MEDS: CYANOCOBALAMIN 1000 MCG TAB PO SCH (08:24)
[2018-02-15] MEDS: LISINOPRIL 20 MG TAB PO SCH (08:24)
[2018-02-15] MEDS: ENOXAPARIN 40 MG/0.4ML SYR SC SCH (08:24)
[2018-02-15] MEDS: PANTOPRAZOLE SOD 40 MG TABEC PO SCH (08:24)
[2018-02-15] MEDS ORDERED: SODIUM CHLORIDE 1 GR TAB PO SCH ×2 (09:00)
--- NOTE | 2018-02-15 10:43 | Hospitalist Progress Note ---
Subjective Progress Notes Subjective She is somewhat sleepy this morning, but does awaken to verbal and tactile stimuli. She tries to answer some questions, but refused to answer otehrs. Physical Exam Vital Signs Date Time Temp Pulse Resp B/P (MAP) Pulse Ox O2 Delivery O2 Flow Rate FiO2 02/15/18 07:59 98.4 75 14 142/56 (84) 96 Nasal Cannula 1.0 Intake and Output 02/15/18 06:59 # Voids 3 General Appearance: Other (somewhat somnolent, but does awaken easily) Neuro: Other (moves all four extremities) Cardiovascular: Regular Rate and Rhythm, No Edema Respiratory: Clear to Auscultation (poor effort) GI: Soft and Non-Tender (BS present) Extremities: Warm, Perfused Result Diagram: 02/14/18 1702 02/15/18 0542 Assessment and Plan Problems: (1) Dementia Status: Chronic Assessment & Plan: Scored 7/10 on cognitive evaluation last admission. Reversible causes of dementia negative. Suspect alcohol encephalopathy vs. small vessel disease vs. Alzheimer dementia. Will have Social Work help family work on placement as it now appears she will no longer be able to live semi- independently. (2) Hyponatremia Status: Chronic Assessment & Plan: Mild. probably due to poor nutrition (and possibly beer intake). No evidence of volume depletion. Will work on intake. Watch labs. (3) Alcohol abuse Status: Chronic Assessment & Plan: Per report drinks at least 6 pack daily. BAL<10 on admission. CIWA protocol, although she did not require any intervention on last admission. Monitor. Exam Sepsis Risk: No Definite Risk GEORGES AMOS MD Feb 15, 2018 10:43
[2018-02-15 10:44] VITALS: Ht 157.5 cm; Wt 56.7 kg
[2018-02-15 11:50] VITALS: BP 117/55
[2018-02-15 14:26] VITALS: BP 133/83
[2018-02-15 18:35] VITALS: BP 119/58
--- NOTE | 2018-02-15 18:37 | SLP EVALUATION SUMMARY REPORT ---
INITIAL SPEECH THERAPY EVALUATION REPORT Cognitive Communication Assessment Patient Name: Minna Metz Date of Evaluation: 02/15/2018 Patient : 1935 Clinician: Laurence Mosqueda M.S., [facility]3]-OPERATIONS TRAINER Treatment Dx: Moderate to severe cognitive communicative deficit BACKGROUND The patient is an 82 year old female admitted to [facility] through the ED. She was brought in by a concerned neighbor, and was found to be hyponatremic upon admission. The pt was also recently hospitalized at the end of January with hyponatremia. At that time, concerns were raised re: memory deficits, potential alcohol abuse, and public safety d/t insistence on continuing to drive despite neighbors report that she often forgets which is gas vs break. The pt was evaluated by ST during prior course of hospitalization with recommendation made for 24/7 supervision and assistance with all IADL activities. ST was referred to re-analyze pts cognition and develop appropriate recommendations for safe and successful discharge. SPEECH: WFL. VOICE: WFL. DYSPHAGIA: WFL. No complaints. LANGUAGE/COGNITION The [place] Cognitive Assessment (MoCA) 7.2 alternative version was administered with the following results: -MoCA Total Score (TS): 12/30 = moderate to severe cognitive impairment (prior score: 10/30) -Cognitive Domains Demonstrating Deficits: attention, immediate memory, short- term memory, working memory, orientation, visuospatial skills and executive function. -Cognitive Domains Demonstrating Strength: item naming, abstraction. Pt previously achieved a score of 10/30 on the MoCA version 7.3. Despite 2pt improvement, differences were insignificant between subtests and may be attributed to use of alternative assessment tool to avoid learner factor. Pt continues to present with moderate to severe cognitive linguistic deficits with difficulty identifying errors during assessment tasks and high level of distractibility. Linear, perseverative thinking was noted with difficulty shifting between topics of conversation. Pt w/ poor insight re: cognitive linguistic deficits, insisting on ability to resume driving tasks, manage own medications, and handle finances independently. Discussed strategies to support safety in immediate hospital environment with emphasis on utilizing call light system to obtain assistance for ambulation, toileting, transfers, etc. Immediately following evaluation encounter, the pt attempted to exit armchair independently and utilize bathroom. Overall, the pt presents w/ moderate to severe, widespread cognitive communicative deficits. The pt is judged to be unsafe for discharge to prior living environment without 24/7 supervision and support for completion of all IADL s. It is also recommended that the patient receive ST services in d/c environment. If unable to obtain 24/7 supervision, long-term care may be an appropriate option. Results indicate the patient may demonstrate impairments completing the following activities: Safe meal preparation Driving Attending to and removing environmental hazards/obstacles Sequencing for activities of daily living Coordinating and remembering to attend medical appointments Execution of simple or complex instructions for safety and medical purposes Independent medication management Independent manager financial reporting RECOMMENDATIONS 24-hour supervision in d/c environment Assistance with all IADL tasks ST 3x/wk to address memory, safety awareness, and environmental problem solving. POC 1. Pt will utilize external compensations to support recall of 5 items when provided with min cues for reference to external aides . 2. Pt will identify environmental hazards/problems and generate at least 2 appropriate solutions when provided with mod cues for improved safety awareness within immediate living environment. 3. Pt will appropriately request assistance for completion of transfers, ambulation tasks, and basic wants/needs to minimize risk for falls, injury, or medical complications during 75% of opportunities with occ reminders via trained caregivers and staff members. Thank you for this referral. Please call [phone] Laurence Mosqueda M.S., CCC-OPERATIONS TRAINER [*] VIVEK
[2018-02-15] MEDS: SIMETHICONE 80 MG CHEW CHEW PRN (20:21)
[2018-02-15] MEDS: MIRTAZAPINE 15 MG TAB PO SCH (20:33)
[2018-02-15 23:59] VITALS: BP 135/49
[2018-02-16] MEDS: ACETAMINOPHEN 325 MG TAB PO PRN ×2 (02:17→21:15)
[2018-02-16 05:43] VITALS: BP 146/92
[2018-02-16 07:00] VITALS: BP 134/55
[2018-02-16] MEDS: CYANOCOBALAMIN 1000 MCG TAB PO SCH (07:47)
[2018-02-16] MEDS: PANTOPRAZOLE SOD 40 MG TABEC PO SCH (07:47)
[2018-02-16] MEDS: LISINOPRIL 20 MG TAB PO SCH (07:47)
[2018-02-16] MEDS: ENOXAPARIN 40 MG/0.4ML SYR SC SCH (07:47)
--- NOTE | 2018-02-16 10:35 | Medical Nutrition Therapy ---
Nutrition Anthropometrics Height (Inches): 62.00 Height (Calculated Centimeters: 157.747473 Weight (Pounds): 125 Weight (Calculated Kilograms): 56.699 Davis Nutrition Score: Probably Inadequate Davis Nutrition Risk Score: 17 Dietary Referral Nutrition Risk Factors: Unplanned Loss >10lbs Nutrition Risk Comment: Pt states diffeculty swallowing chewed food. Loss of teeth recently Physical Findings Physical Appearance: 22.9 Skin Appearance Skin Appearance: Edema Edema Location Modifier: Right Edema Location: Lower Extremity Type of Edema: Degree of Edema: Gastrointestinal Symptoms GI Symtoms: Bloating, Diarrhea, Change in Bowel Pattern Tube Present: Bowel Sounds: Recent Bowel Pattern: Stool Characteristics: Nutritional Diagnosis Nutritional Risk Acuity 2: Unintended Wt Loss >5%/mo Nutritional Risk Acuity 3: Alcohol abuse Nutritional Risk Acuity 4: Good Appetite Past Medical History: Hx of hyponatremia, anemia, and alcohol abuse Nutritional Acuity: 2-Moderate Nutrition Diagnosis: Involuntary Wt. Loss Nutrition Etiology: Alcohol Addiction Nutrition Problem/Etiology/Sym: Involuntary weight loss, as related to high alcohol intake, as evidenced by excessive weight loss possibly due to receiving kcal from alcohol rather than food and 12% weight loss in 8 months. Energy Requirement: 1270 ([place], AF-1.3) Protein Requirement: 56 (1g/kg) Fluid Requirement: 1270 (1ml/kcal) Nutrition Intervention: Cont diet as ordered, Encourage intake Diet Comment To RSA: Offer nutritional supplement Nutrition Monitoring & Eval RD Patient Assessment Time: [address] Assessment Type: RD Screen Patient Nutrition Acuity: 2-Moderate Follow Up Date: Feb 21, 2018 Nutritional Comment: 01/15. Pt admitted for ab pain and hyponatremia. Pt is being treated for dementia, hyponatremia, and alcohol abuse. Pt is on AGGIE, conusmed 100% of breakfast meal. Notable labs inlucde: low sodium 133 and total protein 5.9. Pt also reports weight loss of >10lbs. Pt is 62in, 125lbs, and has a normal BMI of 22.9. Pt reported weight loss. Pt was 143lbs in June, and on 01/31 pt weighed 129lbs. That is a 12% weight loss in 8 months. Will cont to monitor. MR /. Pt cont to eat well. Sodium levels cont to be low, 136. Pt received speech evaluation and is considered to have moderate to severe cognitive communication deficit, will likely be transfered to long term care pharmacist care. Recommend pt consume 1270 kcals and 56 g protein each day. Offer nutritional supplement. MARC ESCUDERO Feb 16, 2018 09:40
--- NOTE | 2018-02-16 11:52 | Hospitalist Progress Note ---
Subjective Progress Notes Subjective She has no complaints this morning. She had no acute events overnight. Patient Complains of: Cardiovascular: No: Chest Pain Respiratory: No: Shortness of Breath Physical Exam Vital Signs Date Time Temp Pulse Resp B/P (MAP) Pulse Ox O2 Delivery O2 Flow Rate FiO2 02/16/18 08:00 95 Nasal Cannula 0.5 02/16/18 07:00 97.6 69 16 134/55 (81) Intake and Output 02/16/18 00:59 Intake Total 1400 ml Balance 1400 ml Intake Oral 1400 ml # Voids 9 # Bowel Movements 2 # [place] 1 General Appearance: Alert, Awake, No Acute Distress, Afebrile Neuro: No Gross deficits Cardiovascular: Regular Rate and Rhythm Respiratory: No Respiratory Distress, Clear to Auscultation GI: Soft and Non-Tender Extremities: Warm, Perfused; No Edema Psych: Alert & Oriented X3, Appropriate Mood & Affect Result Diagram: 02/14/18 1702 02/16/18 0523 Assessment and Plan Problems: (1) Dementia Status: Chronic Assessment & Plan: Scored 7/10 on cognitive evaluation last admission. MOCA evaluation repeated by Speech, shows moderate to severe cognitive function. The patient appears to lack mental capacity to make her own medical decisions. Reversible causes of dementia negative. Suspect alcohol encephalopathy vs. small vessel disease vs. Alzheimer dementia. Will have Social Work help family work on placement as it now appears she will no longer be able to live semi- independently. (2) Hyponatremia Status: Chronic Assessment & Plan: Mild. probably due to poor nutrition (and possibly beer intake). No evidence of volume depletion. Will work on intake. Watch labs. (3) Alcohol abuse Status: Chronic Assessment & Plan: Per report drinks at least 6 pack daily. BAL<10 on admission. CIWA protocol, although she did not require any intervention on last admission. Monitor. Exam Sepsis Risk: No Definite Risk BRITTNEY COE COMMUNICATIONS ADVISOR Feb 16, 2018 11:52
[2018-02-16 14:54] VITALS: BP 140/60
[2018-02-16 19:37] VITALS: BP 134/56
[2018-02-16] MEDS: SIMETHICONE 80 MG CHEW CHEW PRN (21:15)
[2018-02-16] MEDS: MIRTAZAPINE 15 MG TAB PO SCH (21:16)
[2018-02-16 23:09] VITALS: BP 132/51
[2018-02-17] MEDS: SIMETHICONE 80 MG CHEW CHEW PRN (01:24)
[2018-02-17 07:44] VITALS: BP 148/87
[2018-02-17] MEDS: CYANOCOBALAMIN 1000 MCG TAB PO SCH (09:14)
[2018-02-17] MEDS: PANTOPRAZOLE SOD 40 MG TABEC PO SCH (09:14)
[2018-02-17] MEDS: ENOXAPARIN 40 MG/0.4ML SYR SC SCH (09:14)
[2018-02-17] MEDS: LISINOPRIL 20 MG TAB PO SCH (09:14)
--- NOTE | 2018-02-17 11:16 | Hospitalist Progress Note ---
Subjective Progress Notes Subjective She has complaints of difficulty sleeping. She had no acute events overnight. Patient Complains of: Cardiovascular: No: Chest Pain Respiratory: No: Shortness of Breath Physical Exam Vital Signs Date Time Temp Pulse Resp B/P (MAP) Pulse Ox O2 Delivery O2 Flow Rate FiO2 02/17/18 07:50 95 Room Air 02/17/18 07:44 97.6 78 16 148/87 (107) 02/17/18 05:25 1.0 Intake and Output 02/17/18 06:59 Intake Total 2102 ml Balance 2102 ml Intake Oral 2102 ml # Voids 6 General Appearance: Alert, Awake, No Acute Distress, Afebrile Neuro: No Gross deficits Cardiovascular: Regular Rate and Rhythm Respiratory: No Respiratory Distress, Clear to Auscultation GI: Soft and Non-Tender Psych: Alert & Oriented X3, Appropriate Mood & Affect Result Diagram: 02/14/18 1702 02/16/18 0523 Assessment and Plan Problems: (1) Dementia Status: Chronic Assessment & Plan: Scored 7/10 on cognitive evaluation last admission. MOCA evaluation repeated by Speech, shows moderate to severe cognitive function. The patient appears to lack mental capacity to make her own medical decisions. Reversible causes of dementia negative. Suspect alcohol encephalopathy vs. small vessel disease vs. Alzheimer dementia. Will have Social Work help family work on placement as it now appears she will no longer be able to live semi- independently. (2) Hyponatremia Status: Chronic Assessment & Plan: Mild. probably due to poor nutrition (and possibly beer intake). No evidence of volume depletion. Will work on intake. Watch labs. (3) Alcohol abuse Status: Chronic Assessment & Plan: Per report drinks at least 6 pack daily. BAL<10 on admission. CIWA protocol, although she did not require any intervention on last admission. Monitor. (4) Insomnia Status: Acute Assessment & Plan: We will try Melatonin for sleep. Exam Sepsis Risk: No Definite Risk BRITTNEY COE Feb 17, 2018 11:16
[2018-02-17 20:54] VITALS: BP 130/53
[2018-02-17] MEDS: MIRTAZAPINE 15 MG TAB PO SCH (21:04)
[2018-02-17] MEDS: MELATONIN 3 MG TAB PO SCH (21:04)
[2018-02-18] VITALS (8 sets, daily range): BP systolic 129–191; BP diastolic 52–92
[2018-02-18] MEDS: PANTOPRAZOLE SOD 40 MG TABEC PO SCH (09:49)
[2018-02-18] MEDS: ENOXAPARIN 40 MG/0.4ML SYR SC SCH (09:49)
[2018-02-18] MEDS: CYANOCOBALAMIN 1000 MCG TAB PO SCH (09:49)
[2018-02-18] MEDS: LISINOPRIL 20 MG TAB PO SCH (09:49)
--- NOTE | 2018-02-18 12:14 | Hospitalist Progress Note ---
Subjective Progress Notes Subjective 82F admitted for hyponatremia and self care deficits. JULIAN overnight, discharge planning complicated by accusations and unclear POA status. Patient Complains of: Neurological: No: Syncope Cardiovascular: No: Chest Pain Respiratory: No: Cough Physical Exam Vital Signs Date Time Temp Pulse Resp B/P (MAP) Pulse Ox O2 Delivery O2 Flow Rate FiO2 02/18/18 11:03 97.7 76 24 141/92 (108) 94 Room Air 02/17/18 05:25 1.0 Intake and Output 02/18/18 06:59 Intake Total 1960 ml Balance 1960 ml Intake Oral 1960 ml # Voids 11 # Bowel Movements 2 General Appearance: Awake, No Acute Distress Neuro: No Gross deficits Eyes: PERRLA ENT: Normal Neck: No Masses Cardiovascular: Normal Rhythm & Peripheral Pulses Respiratory: No Respiratory Distress GI: Soft and Non-Tender Musculoskeletal: No Weakness/Pain Integumentary: Skin Intact without Lesion / Mass Result Diagram: 02/14/18 1702 02/18/18 0530 Assessment and Plan Problems: (1) Dementia Status: Chronic Assessment & Plan: Scored 7/30 on cognitive evaluation last admission. MOCA evaluation repeated by Speech, shows moderate to severe cognitive function. The patient appears to lack mental capacity to make her own medical decisions. Reversible causes of dementia negative. Suspect alcohol encephalopathy vs. small vessel disease vs. Alzheimer dementia. Will have Social Work help family work on placement as it now appears she will no longer be able to live semi- independently. (2) Hyponatremia Status: Chronic Assessment & Plan: Mild. probably due to poor nutrition (and possibly beer intake). No evidence of volume depletion. Will work on intake. Improved (3) Alcohol abuse Status: Chronic Assessment & Plan: Per report drinks at least 6 pack daily. BAL<10 on admission. CIWA protocol stopped as no interventions necessary since admission or last admission. Monitor. (4) Insomnia Status: Acute Assessment & Plan: We will try Melatonin for sleep. Exam Sepsis Risk: No Definite Risk HARTMAN BRANDO KIM DO Feb 18, 2018 12:14
[2018-02-18] MEDS: MELATONIN 3 MG TAB PO SCH (20:23)
[2018-02-18] MEDS: MIRTAZAPINE 15 MG TAB PO SCH (20:23)
[2018-02-18] MEDS: ACETAMINOPHEN 325 MG TAB PO PRN (23:29)
--- NOTE | 2018-02-19 08:47 | Hospitalist Progress Note ---
Subjective Progress Notes Subjective 82F admitted for hyponatremia. JULIAN overnight medically stable. Working with CM to create discharge plan. Patient unable to make own decisions medically and no DPOA. Physical Exam Vital Signs Date Time Temp Pulse Resp B/P (MAP) Pulse Ox O2 Delivery O2 Flow Rate FiO2 02/18/18 23:26 98.3 93 157/63 (94) 93 Room Air 02/18/18 14:18 20 02/17/18 05:25 1.0 Intake and Output 02/19/18 06:59 Intake Total 540 ml Balance 540 ml Intake Oral 540 ml # Voids 9 General Appearance: No Acute Distress, Other (Sleeping comfortably) Cardiovascular: Normal Rhythm & Peripheral Pulses Respiratory: No Respiratory Distress Extremities: Soft and Non Tender, Warm, Pulses, Perfused; No Edema Result Diagram: 02/18/18 0574 Assessment and Plan Problems: (1) Dementia Status: Chronic Assessment & Plan: Scored 7/30 on cognitive evaluation last admission. MOCA evaluation repeated by Speech, shows moderate to severe cognitive function. The patient appears to lack mental capacity to make her own medical decisions. Reversible causes of dementia negative. Suspect alcohol encephalopathy vs. small vessel disease vs. Alzheimer dementia. Will have Social Work help family work on placement as it now appears she will no longer be able to live semi- independently. (2) Hyponatremia Status: Chronic Assessment & Plan: Improved, probably due to poor nutrition (and possibly beer intake). No evidence of volume depletion. Will work on intake. (3) Alcohol abuse Status: Chronic Assessment & Plan: Per report drinks at least 6 pack daily. BAL<10 on admission. CIWA protocol stopped as no interventions necessary since admission or last admission. Monitor. (4) Insomnia Status: Acute Assessment & Plan: Melatonin for sleep. Improved Exam Sepsis Risk: No Definite Risk HARTMAN BRANDO KIM DO Feb 19, 2018 08:47
[2018-02-19 09:30] VITALS: BP 155/62
[2018-02-19] MEDS: PANTOPRAZOLE SOD 40 MG TABEC PO SCH (09:49)
[2018-02-19] MEDS: LISINOPRIL 20 MG TAB PO SCH (09:53)
[2018-02-19] MEDS: ENOXAPARIN 40 MG/0.4ML SYR SC SCH (09:53)
[2018-02-19] MEDS: CYANOCOBALAMIN 1000 MCG TAB PO SCH (09:53)
[2018-02-19 16:13] VITALS: BP 148/79
[2018-02-19] MEDS: SIMETHICONE 80 MG CHEW CHEW PRN ×2 (17:05→19:40)
[2018-02-19 19:34] VITALS: BP 154/62
[2018-02-19] MEDS: MELATONIN 3 MG TAB PO SCH (20:30)
[2018-02-19] MEDS: MIRTAZAPINE 15 MG TAB PO SCH (20:30)
[2018-02-19] MEDS: ACETAMINOPHEN 325 MG TAB PO PRN (20:32)
[2018-02-20 07:58] VITALS: BP 152/69
[2018-02-20] MEDS: CYANOCOBALAMIN 1000 MCG TAB PO SCH (08:17)
[2018-02-20] MEDS: LISINOPRIL 20 MG TAB PO SCH (08:17)
[2018-02-20] MEDS: PANTOPRAZOLE SOD 40 MG TABEC PO SCH (08:17)
[2018-02-20] MEDS: ENOXAPARIN 40 MG/0.4ML SYR SC SCH (08:17)
[2018-02-20] MEDS: amLODIPine BESYL(*) 5 MG TAB PO SCH (09:05)
--- NOTE | 2018-02-20 09:52 | Hospitalist Progress Note ---
Subjective Progress Notes Subjective She has no complaints this morning. She had no acute events overnight. Patient Complains of: Cardiovascular: No: Chest Pain Respiratory: No: Shortness of Breath Physical Exam Vital Signs Date Time Temp Pulse Resp B/P (MAP) Pulse Ox O2 Delivery O2 Flow Rate FiO2 02/20/18 07:59 95 Room Air 02/20/18 07:58 98.0 78 20 152/69 (96) 02/17/18 05:25 1.0 Intake and Output 02/20/18 06:59 Intake Total 2960 ml Balance 2960 ml Intake Oral 2960 ml # Voids 9 # Bowel Movements 2 General Appearance: Alert, Awake, No Acute Distress, Afebrile Neuro: No Gross deficits Cardiovascular: Regular Rate and Rhythm Respiratory: No Respiratory Distress, Clear to Auscultation Extremities: No Edema Psych: Alert & Oriented X3, Appropriate Mood & Affect Result Diagram: 02/18/18 0505 Assessment and Plan Problems: (1) Dementia Status: Chronic Assessment & Plan: Scored 7/30 on cognitive evaluation last admission. MOCA evaluation repeated by Speech, shows moderate to severe cognitive function. The patient appears to lack mental capacity to make her own medical decisions. Reversible causes of dementia negative. Suspect alcohol encephalopathy vs. small vessel disease vs. Alzheimer dementia. Will have Social Work help family work on placement as it now appears she will no longer be able to live semi- independently. (2) Hyponatremia Status: Chronic Assessment & Plan: Improved, probably due to poor nutrition (and possibly beer intake). No evidence of volume depletion. Will work on intake. (3) Alcohol abuse Status: Chronic Assessment & Plan: Per report drinks at least 6 pack daily. BAL<10 on admi ssion. CIWA protocol stopped as no interventions necessary since admission or last admission. Monitor. (4) Insomnia Status: Acute Assessment & Plan: Melatonin for sleep. Improved Exam Sepsis Risk: No Definite Risk BRITTNEY COE Feb 20, 2018 09:52
[2018-02-20 15:47] VITALS: BP 148/68
[2018-02-20 18:49] VITALS: BP 136/61
[2018-02-20] MEDS: SIMETHICONE 80 MG CHEW CHEW PRN (19:44)
[2018-02-20] MEDS: MIRTAZAPINE 15 MG TAB PO SCH (20:48)
[2018-02-20] MEDS: MELATONIN 3 MG TAB PO SCH (20:48)
[2018-02-20] MEDS: ACETAMINOPHEN 325 MG TAB PO PRN (23:07)
[2018-02-21 07:38] VITALS: BP 157/75
[2018-02-21] MEDS: LISINOPRIL 20 MG TAB PO SCH (08:21)
[2018-02-21] MEDS: PANTOPRAZOLE SOD 40 MG TABEC PO SCH (08:21)
[2018-02-21] MEDS: CYANOCOBALAMIN 1000 MCG TAB PO SCH (08:21)
[2018-02-21] MEDS: amLODIPine BESYL(*) 5 MG TAB PO SCH (08:21)
--- NOTE | 2018-02-21 08:39 | Hospitalist Progress Note ---
Subjective Progress Notes Subjective No concerns from the patient or staff. She slept well and is hungry for breakfast. She ambulates independently, safely. Physical Exam Vital Signs Date Time Temp Pulse Resp B/P (MAP) Pulse Ox O2 Delivery O2 Flow Rate FiO2 02/21/18 07:38 93 Room Air 02/21/18 07:38 98.5 78 16 157/75 (102) Intake and Output 02/21/18 07:00 Intake Total 1802 ml Balance 1802 ml Intake Oral 1802 ml # Voids 8 General Appearance: Alert, Awake, No Acute Distress Result Diagram: 02/18/18 0530 Assessment and Plan Problems: (1) Dementia Status: Chronic Assessment & Plan: Scored 7/30 on cognitive evaluation last admission. MOCA evaluation repeated by Speech, shows moderate to severe cognitive function. The patient appears to lack mental capacity to make her own medical decisions. Reversible causes of dementia negative. Suspect alcohol encephalopathy vs. small vessel disease vs. Alzheimer dementia. Will have Social Work help family work on placement as it now appears she will no longer be able to live semi- independently. (2) Hyponatremia Status: Chronic Assessment & Plan: Improved, probably due to poor nutrition (and possibly beer intake). No evidence of volume depletion. Will work on intake. (3) Alcohol abuse Status: Chronic Assessment & Plan: Per report drinks at least 6 pack daily. BAL<10 on admission. CIWA protocol stopped as no interventions necessary since admission or last admission. Monitor. (4) Insomnia Status: Acute Assessment & Plan: Melatonin for sleep. Improved Exam Sepsis Risk: No Definite Risk PHILLIP SARMIENTO MD Feb 21, 2018 08:39
[2018-02-21] MEDS: ACETAMINOPHEN 325 MG TAB PO PRN ×2 (11:27→19:28)
--- NOTE | 2018-02-21 11:54 | Medical Nutrition Therapy ---
Nutrition Anthropometrics Height (Inches): 62.00 Height (Calculated Centimeters: 157.465052 Weight (Pounds): 125 Weight (Calculated Kilograms): 56.699 Davis Nutrition Score: Adequate Davis Nutrition Risk Score: 19 Dietary Referral Nutrition Risk Factors: Unplanned Loss >10lbs Nutrition Risk Comment: Pt states diffeculty swallowing chewed food. Loss of teeth recently Physical Findings Physical Appearance: 22.9 Skin Appearance Skin Appearance: Edema Edema Location Modifier: Right Edema Location: Lower Extremity Type of Edema: Degree of Edema: Gastrointestinal Symptoms GI Symtoms: Bloating Tube Present: Bowel Sounds: Recent Bowel Pattern: Stool Characteristics: Nutritional Diagnosis Nutritional Risk Acuity 2: Unintended Wt Loss >5%/mo Nutritional Risk Acuity 3: Alcohol abuse Nutritional Risk Acuity 4: Good Appetite Past Medical History: Hx of hyponatremia, anemia, and alcohol abuse Nutritional Acuity: 2-Moderate Nutrition Diagnosis: Involuntary Wt. Loss Nutrition Etiology: Alcohol Addiction Nutrition Problem/Etiology/Sym: Involuntary weight loss, as related to high alcohol intake, as evidenced by excessive weight loss possibly due to receiving kcal from alcohol rather than food and 12% weight loss in 8 months. Energy Requirement: 1270 ([place], AF-1.3) Protein Requirement: 56 (1g/kg) Fluid Requirement: 1270 (1ml/kcal) Nutrition Intervention: Cont diet as ordered, Encourage intake Food Dislikes: ensure v and c Diet Comment To RSA: Offer nutritional supplement Nutrition Monitoring & Eval RD Patient Assessment Time: [address] Assessment Type: RD Re-Assessment Patient Nutrition Acuity: 2-Moderate Follow Up Date: Feb 26, 2018 Nutritional Comment: 01/15. Pt admitted for ab pain and hyponatremia. Pt is being treated for dementia, hyponatremia, and alcohol abuse. Pt is on AGGIE, conusmed 100% of breakfast meal. Notable labs inlucde: low sodium 133 and total protein 5.9. Pt also reports weight loss of >10lbs. Pt is 62in, 125lbs, and has a normal BMI of 22.9. Pt reported weight loss. Pt was 143lbs in June, and on 01/31 pt weighed 129lbs. That is a 12% weight loss in 8 months. Will cont to monitor. MR 01/16. Pt cont to eat well. Sodium levels cont to be low, 136. 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 Recommend pt consume 1270 kcals and 56 g protein each day. Offer nutritional supplement. MR 02/21. Pt cont on AGGIE, consuming on average 100% of regular sized meals. No new labs available. No new weight reported. Noted pt cont to be confused on time and forgetful at times. Will cont to monitor pt intake and weight when available. MARC ESCUDERO Feb 21, 2018 09:00
[2018-02-21 15:23] VITALS: BP 127/68
[2018-02-21] MEDS: SIMETHICONE 80 MG CHEW CHEW PRN ×2 (17:23→19:27)
[2018-02-21 19:38] VITALS: BP 122/83
[2018-02-21] MEDS: MELATONIN 3 MG TAB PO SCH (20:16)
[2018-02-21] MEDS: MIRTAZAPINE 15 MG TAB PO SCH (20:16)
[2018-02-22 07:42] VITALS: BP 148/66
--- NOTE | 2018-02-22 08:31 | Hospitalist Progress Note ---
Subjective Progress Notes Subjective She denies any new problems or complaints - "I just want to go home". Physical Exam Vital Signs Date Time Temp Pulse Resp B/P (MAP) Pulse Ox O2 Delivery O2 Flow Rate FiO2 02/22/18 07:42 98.1 76 18 148/66 (93) 93 Room Air Intake and Output 02/22/18 07:00 Intake Total 522 ml Balance 522 ml Intake Oral 522 ml # Voids 9 # Bowel Movements 1 General Appearance: Alert, Awake Cardiovascular: Regular Rate and Rhythm, No Edema Respiratory: Clear to Auscultation GI: Soft and Non-Tender Extremities: Warm, Perfused Result Diagram: 02/18/18 0530 Assessment and Plan Problems: (1) Dementia Status: Chronic Assessment & Plan: Scored 7/30 on cognitive evaluation last admission. MOCA evaluation repeated by Speech, shows moderate to severe cognitive function. The patient appears to lack mental capacity to make her own medical decisions. Reversible causes of dementia negative. Suspect alcohol encephalopathy vs. small vessel disease vs. Alzheimer dementia. Social Work helping family work on placement as it now appears she will no longer be able to live semi- independently. (2) Hyponatremia Status: Chronic Assessment & Plan: Improved, probably due to poor nutrition (and possibly beer intake). No evidence of volume depletion. Will work on intake. (3) Alcohol abuse Status: Chronic Assessment & Plan: Per report drinks at least 6 pack daily. BAL<10 on admission. CIWA protocol stopped as no interventions necessary since admission or last admission. Monitor. (4) Insomnia Status: Acute Assessment & Plan: Melatonin for sleep. Improved. Exam Sepsis Risk: No Definite Risk GEORGES AMOS MD Feb 22, 2018 08:31
[2018-02-22] MEDS: PANTOPRAZOLE SOD 40 MG TABEC PO SCH (08:34)
[2018-02-22] MEDS: LISINOPRIL 20 MG TAB PO SCH (08:34)
[2018-02-22] MEDS: CYANOCOBALAMIN 1000 MCG TAB PO SCH (08:34)
[2018-02-22] MEDS: amLODIPine BESYL(*) 5 MG TAB PO SCH (08:34)
[2018-02-22 14:26] VITALS: BP 141/78
[2018-02-22 19:02] VITALS: BP 152/71
[2018-02-22] MEDS: MIRTAZAPINE 15 MG TAB PO SCH (21:34)
[2018-02-22] MEDS: MELATONIN 3 MG TAB PO SCH (21:34)
[2018-02-22] MEDS: ACETAMINOPHEN 325 MG TAB PO PRN (21:34)
[2018-02-22 22:52] VITALS: BP 153/70
[2018-02-22] MEDS: SIMETHICONE 80 MG CHEW CHEW PRN (22:53)
[2018-02-23 05:56] LABS: PLATELET COUNT, AUTOMATED 232 K/uL (150-450)
[2018-02-23 08:23] VITALS: BP 156/73
[2018-02-23] MEDS: LISINOPRIL 20 MG TAB PO SCH (08:52)
[2018-02-23] MEDS: PANTOPRAZOLE SOD 40 MG TABEC PO SCH (08:52)
[2018-02-23] MEDS: amLODIPine BESYL(*) 5 MG TAB PO SCH (08:52)
[2018-02-23] MEDS: CYANOCOBALAMIN 1000 MCG TAB PO SCH (08:52)
[2018-02-23] MEDS ORDERED: MELA3TAB31 PO (10:33)
[2018-02-23] MEDS ORDERED: ACET-2007 PO (10:33)
--- NOTE | 2018-02-23 10:36 | Hospitalist Depart ---
Discharge Summary Reason for Hosp/Final Diag: (1) Dementia Status: Chronic Hospital Course & Plan: Scored 7/30 on cognitive evaluation last admission. MOCA evaluation repeated by Speech, shows moderate to severe cognitive function. The patient appears to lack mental capacity to make her own medical decisions. Reversible causes of dementia negative. Suspect alcohol encephalopathy vs. small vessel disease vs. Alzheimer dementia. Discharge to [facility]. (2) Hyponatremia Status: Chronic Hospital Course & Plan: Due to poor nutrition and beer drinking. No evidence of volume depletion. Resolved with nutrition and avoid EtOH. (3) Alcohol abuse Status: Chronic Hospital Course & Plan: Per report drinks at least 6 pack daily. BAL<10 on admission. No withdrawal symptoms. (4) Insomnia Status: Acute Hospital Course & Plan: Melatonin for sleep. Improved. Departure Weight (Pounds): 125 Result Diagram: 02/23/1852002/23/18520 Condition: Improved Discharge: [facility] Discharge Instructions Home Meds Active Scripts Melatonin (MELATONIN) 3 Mg Tablet, 3 MG PO QHS for 30 Days, TAB Prov:DEVAN KIMBRANDO DO 02/23/18 Acetaminophen (MAPAP) 325 Mg Tablet, 650 MG PO Q6H PRN for PAIN OR FEVER 100 OR GREATER for 30 Days, TAB Prov:DEVAN KIMBRANDO DO 02/23/18 Mirtazapine (MIRTAZAPINE) 7.5 Mg Tablet, 1 TAB PO QHS, #30 TAB Prov:HEENA KAPADIA APRN STUD DRIVER-C 09/15/17 Ferrous Sulfate (FERROUS SULFATE) 325 Mg Tablet, 1 TAB PO BIDBS, #60 TAB 0 Refills Prov:HEENA KAPADIA APRNP-C 08/15/17 Amlodipine Besylate (AMLODIPINE BESYLATE) 5 Mg Tablet, 1 TAB PO QDAY, #90 TAB 1 Refill Prov:HEENA KAPADIA APRN STUD DRIVER-C 07/12/17 Omeprazole (OMEPRAZOLE) 20 Mg Capsule.dr, 20 MG PO QDAY, #90 CAP 3 Refills Prov:HEENA KAPADIA APRN STUD DRIVER-C 07/12/17 Lisinopril (LISINOPRIL) 20 Mg Tablet, 20 MG PO QDAY, #90 TAB 1 Refill Prov:HEENA KAPADIA APRN STUD DRIVER-C 07/12/17 Cyanocobalamin (Vitamin B-12) (VITAMIN B-12) 1,000 Mcg Tablet, 1000 MCG PO QDAY for 30 Days, #30 TAB Prov:LOU DC MD 07/11/17 Diet: Regular Activity: As Tolerated Special Instructions: Venous Thromboembolism Antithrombotics Is Pt On Any Antithrombotics?: Yes BRANDO CULVER DO Feb 23, 2018 10:35
== END 2018-02-23 14:00 | DRG 641 ==
LOC: ER 16:36 → MED 19:24
PROVIDERS: ADMIT Internal Medicine; ATTEND Internal Medicine
DX: E87.1 Hypo-osmolality and hyponatremia (principal); K21.9 Gastro-esophageal reflux disease without esophagitis; F10.10 Alcohol abuse, uncomplicated; Z90.710 Acquired absence of both cervix and uterus; Z90.49 Acquired absence of other specified parts of digestive tract; F03.90 Unspecified dementia, unspecified severity, without behavioral disturbance, psychotic disturbance, mood disturbance, and anxiety; D64.9 Anemia, unspecified
CPT/HCPCS: 36415; 74022; 80320; 81001; 82040; 82247; 82310; 82374; 82435; 82565; 82947; 83690; 83735; 84075; 84132; 84155; 84295; 84450; 84460; 84484; 84520; 85025; 93005; 96374; 97161; 97165; 99284; J1650; J2405